=== PATIENT | female | born 1935 | race Caucasian/White ===

== ENCOUNTER → 2016-08-03 | Outpatient (CLI) | payer OTHER ==
[~2016-08-03] MED LIST: ASPEC81 PO; CALC600T9; CLTP PO; CRS/10 PO; LISI2.5T5 PO; LPR25 PO; PANT40TA PO; WARF1TAB6 PO; WARF2.5T8 PO
[2016-08-03 13:15] LABS: INR 3.4 (0.9-1.1); PROTHROMBIN TIME (PATIENT) 37.7 SECONDS (9.0-12.0)
== END | disposition home or self-care (01) ==
LOC: C.LABPBG 09:14
PROVIDERS: ATTEND Internal Medicine
DX: I48.2 Chronic atrial fibrillation (principal); Z79.01 Long term (current) use of anticoagulants

== ENCOUNTER → 2016-10-09 | Outpatient (CLI) | payer OTHER ==
[~2016-10-09] MED LIST changes: +LISI-729 PO
[2016-10-09 12:31] LABS: PROTHROMBIN TIME (PATIENT) 40.1 SECONDS (9.0-12.0)
[2016-10-09 12:41] LABS: INR 3.6 (0.9-1.1)
== END | disposition home or self-care (01) ==
LOC: C.LAB1850 11:18
PROVIDERS: ATTEND Internal Medicine
DX: Z79.01 Long term (current) use of anticoagulants (principal); Z51.81 Encounter for therapeutic drug level monitoring

== ENCOUNTER → 2016-11-02 | Outpatient (CLI) | payer OTHER ==
[2016-11-02 12:22] LABS: BASO % 0.4 %; BASO ABS # 0.03 K/uL (0-0.2); COMPLETE YES; EOS % 4.9 %; IG% 0.3 %; LYMPH % 27.8 %; LYMPH ABS # 1.93 K/uL (1.2-3.4); MEAN CORPUSCULAR HEMOGLOBIN 29.2 pg (25-34); MEAN CORPUSCULAR HGB CONC 32.9 g/dl (32-36); MEAN PLATELET VOLUME 11.5 fL (7.4-10.4); MONO % 10.1 %; NEUT % 56.5 %; PLATELET COUNT 185 K/uL (130-400); RED BLOOD COUNT 4.72 M/uL (4.2-5.4); WHITE BLOOD COUNT 6.93 K/uL (4.8-10.8)
[2016-11-02 13:17] LABS: ALT/SGPT 19 U/L (12-78); AST/SGOT 19 U/L (15-37); BLOOD UREA NITROGEN 13 mg/dl (7-18); BUN/CREATININE RATIO 13.6 (10-20); CALCIUM 9.3 mg/dl (8.5-10.1); CARBON DIOXIDE 25 mmol/L (21-32); CHLORIDE 108 mmol/L (98-107); CHOLESTEROL 112 mg/dl (0-200); CREATININE 0.99 mg/dl (0.60-1.20); GLUCOSE 96 mg/dl (70-99); POTASSIUM 3.9 mmol/L (3.5-5.1); SODIUM 141 mmol/L (136-145)
[2016-11-02 13:28] LABS: ALKALINE PHOSPHATASE 56 U/L (45-117); CHOLESTEROL/HDL RATIO 2.2; HDL CHOLESTEROL 52 mg/dl; LDL CHOLESTEROL CALCULATED 39 mg/dl; TRIGLYCERIDES 105 mg/dl (0-150); VERY LOW DENSITY LIPOPROT CALC 21 mg/dl
== END | disposition home or self-care (01) ==
LOC: C.LABPBG 08:48
PROVIDERS: ATTEND Internal Medicine
DX: I48.2 Chronic atrial fibrillation (principal); I25.10 Atherosclerotic heart disease of native coronary artery without angina pectoris; Z51.81 Encounter for therapeutic drug level monitoring; Z79.01 Long term (current) use of anticoagulants

== ENCOUNTER → 2016-11-18 | Outpatient (CLI) | payer OTHER ==
--- NOTE | 2016-11-18 13:16 | MAMMOGRAPHY REPORT ---
BILATERAL DIGITAL SCREENING MAMMOGRAM WITH CAD: 11/18/2016 CLINICAL HISTORY: Routine screening. Patient has no complaints. TECHNIQUE: Current study was also evaluated with a Computer Aided Detection (CAD) system. Bilatera l CC and MLO views were obtained. COMPARISON: Comparison is made to exams dated: 11/18/2015 mammogram, 11/14/2014 mammogram, 11/13/2013 [facility] mogram, 11/09/2012 mammogram, 06/09/2011 mammogram, and 06/04/2010 mammogram - [facility] enter. BREAST COMPOSITION: The tissue of both breasts is heterogeneously dense, which may obscure small ma sses. FINDINGS: No suspicious masses, calcifications, or areas of architectural distortion are noted in e ither breast. There has been no significant interval change compared to prior exams. A linear scar marker denotes a scar on the left superior breast. Bilateral benign-appearing calcifications are no t significantly changed. IMPRESSION: ACR BI-RADS CATEGORY 2: BENIGN There is no mammographic evidence of malignancy. A 1 year screening mammogram is recommended. The p atient will receive written notification of the results. Approximately 10% of breast cancers are not detected with mammography. A negative mammographic repor t should not delay biopsy if a clinically suggestive mass is present. Lianet Case M.D. ah/:11/18/2016 12:07:51 Tie In Machine Operator: Cornelia SILVA)(Lior), [facility] letter sent: Normal 1/2 BI-RADS Code: ACR BI-RADS Category 2: Benign
== END | disposition home or self-care (01) ==
LOC: C.MAMM 10:40
PROVIDERS: ATTEND Internal Medicine
DX: Z12.31 Encounter for screening mammogram for malignant neoplasm of breast (principal)

== ENCOUNTER → 2017-01-27 | Outpatient (CLI) | payer OTHER ==
[2017-01-27 17:38] LABS: BASO % 0.2 %; BASO ABS # 0.02 K/uL (0-0.2); COMPLETE YES; EOS % 2.6 %; HEMATOCRIT 42.7 % (37-47); IG% 0.3 %; LYMPH % 17.6 %; LYMPH ABS # 1.93 K/uL (1.2-3.4); MEAN CELL VOLUME 88.6 fL (80-100); MEAN CORPUSCULAR HEMOGLOBIN 27.8 pg (25-34); MEAN CORPUSCULAR HGB CONC 31.4 g/dl (32-36); MONO % 10.1 %; NEUT % 69.2 %; PLATELET COUNT 227 K/uL (130-400); RED BLOOD COUNT 4.82 M/uL (4.2-5.4); WHITE BLOOD COUNT 10.98 K/uL (4.8-10.8)
== END | disposition home or self-care (01) ==
LOC: C.LABPBG 11:49
PROVIDERS: ATTEND Internal Medicine
DX: R68.84 Jaw pain (principal)

== ENCOUNTER → 2017-11-19 | Outpatient (CLI) | payer OTHER ==
[~2017-11-19] MED LIST changes: -CALC600T9; -LISI2.5T5 PO; -WARF1TAB6 PO
--- NOTE | 2017-11-22 07:44 | MAMMOGRAPHY REPORT ---
BILATERAL DIGITAL SCREENING MAMMOGRAM TOMOSYNTHESIS WITH CAD: 11/19/2017 CLINICAL HISTORY: Routine screening. Patient has no complaints. TECHNIQUE: Breast tomosynthesis in addition to standard 2D mammography was performed. Current study was also evaluated with a Computer Aided Detection (CAD) system. COMPARISON: Comparison is made to exams dated: 11/18/2016 mammogram, 11/18/2015 mammogram, 11/14/2014 [facility] mogram, 11/13/2013 mammogram, 11/09/2012 mammogram, and 06/09/2011 mammogram - [facility] er. BREAST COMPOSITION: The tissue of both breasts is heterogeneously dense, which may obscure small mas ses. FINDINGS: No suspicious masses, calcifications, or areas of architectural distortion are noted in ei ther breast. There has been no significant interval change compared to prior exams. Scattered bilater al benign-appearing calcifications are not significantly changed. IMPRESSION: ACR BI-RADS CATEGORY 2: BENIGN There is no mammographic evidence of malignancy. A 1 year screening mammogram is recommended. The pa tient will receive written notification of the results. Approximately 10% of breast cancers are not detected with mammography. A negative mammographic report should not delay biopsy if a clinically suggestive mass is present. Lianet Case M.D. /:11/19/2017 13:34:43 Health Sciences Department Chair: Cornelia SILVA)(Lior), [facility] letter sent: Normal 1/2 BI-RADS Code: ACR BI-RADS Category 2: Benign
== END | disposition home or self-care (01) ==
LOC: C.MAMM 11:14
PROVIDERS: ATTEND Internal Medicine
DX: Z12.31 Encounter for screening mammogram for malignant neoplasm of breast (principal)

== ENCOUNTER 2019-11-30 05:44 | Inpatient (IN) ==
--- NOTE | 2019-11-30 06:41 | Emergency Department Note ---
Impression & Plan Stroke, Vertigo, Acute UTI (urinary tract infection), Chest wall contusion, Contusion of flank ED Provider Note NAME: DAVID COURTNEY AGE: 84 SEX: F : 1935 ARRIVES VIA: Ambulance INFORMANT: Patient, ED PROVIDER(S): Sin Gutierrez DO CHIEF COMPLAINT: Vertigo and fall HPI: The patient is an 84-year-old female who has a history of valve replacement who takes oral anticoagulation who presented to the emergency department for an evaluation of dizziness. The patient states that she went to bed at her normal time last evening. She was in her normal state of health. She went to get up this morning to go to the bathroom when she noticed that she became very dizzy and lightheaded. She states that she had room spinning and nausea. This caused her to fall onto her right side striking her right flank. She did not strike h er head or lose consciousness. She has no specific neck pain from the fall. She states that she does have some neck pain which had been ongoing and chronic. The patient called 911 and was brought to the emergency department via ambulance. She did have one episode of emesis prior to arrival. She continues to note nausea. She complains of right flank pain. She denies having any lower extremity pain. She has no hip pain. She has had no recent fevers or chills. She does complain of dysuria and frequency. She denies having any rectal bleeding. She states that she has been compliant with her medications currently. ROS: See above HPI for pertinent positives & negatives. A total of 10 systems reviewed and were otherwise negative. PAST MEDICAL HISTORY: See Below PAST SURGICAL HISTORY: See Below FAMILY HISTORY: See Below SOCIAL HISTORY: See Below HOME MEDICATIONS: See Below ALLERGIES: See Below VITALS: See Below PHYSICAL EXAMINATION: GENERAL: The patient is awake and alert. She is somewhat anxious appearing but overall comfortable. EYES: The conjunctivae are clear. The pupils are constricted but reactive to light bilaterally. EARS, NOSE, MOUTH AND THROAT: The nose is without any evidence of any deformity. Mucous membranes are moist. NECK: The neck is nontender and supple. RESPIRATORY: Normal respiratory effort is noted there is no evidence of wheezing rhonchi or rales CARDIOVASCULAR: Regular rate and rhythm was noted to auscultation. There was a slight murmur detected with a metallic click consistent with the patient's previous history of valve replacement.. GASTROINTESTINAL: The abdomen is soft. There is right-sided tenderness to palpa tion but no guarding or rigidity. BACK: No midline tenderness was elicited. There is significant tenderness over the right lower lateral rib cage into the right flank. There is no signs of ecchymosis at this time. MUSCULOSKELETAL/EXTREMITIES: There is no evidence of gross deformity full range of motion is noted in the hips and shoulders. SKIN: There is no obvious evidence of any rash. There are no petechiae, pallor or cyanosis noted. NEUROLOGIC: Patient is awake alert and oriented x3 strength is symmetric patellar reflexes are 2+ bilaterally MEDICAL DECISION MAKING: The patient is an 84-year-old female who presented to the emergency department f or an evaluation after a fall. The patient had an episode of vertigo which resulted in a fall where she struck her right flank. The patient still had some vertigo symptoms in the emergency department. She was feeling much better at rest and did not wish to have any medication for nausea or vomiting. She also did not wish to have any medication for pain. The patient also complained of urinary symptoms and was found to have a urinary tract infection on urinalysis. I discussed the patient's laboratory and radiographic studies with her. There is no specific traumatic injury of the chest or abdomen. This was concerning given the patient's history of oral anticoagulation use. 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 The patient was treated with IV antibiotics. She was reevaluated multiple times. The patient's blood pressure was stable. Given her findings the [facility] hospitalist group was notified about the patient. They will evaluate the patient in the emergency department for further management and disposition. Triage Nursing notes reviewed. Prior medical records reviewed Vital Signs: reviewed and remarkable for no significant abnormalities Differential diagnosis: Infection, dehydration, metabolic abnormality, hypo/hyperglycemia, electrolyte disturbance, anemia, hypoxia, cardiac sources, intracerebral event, toxicologic, neurologic, as well as other pathologies. ER treatment provided: See below Diagnostics interpreted by me: ECG: EKG was obtained in the emergency department. My interpretation is ventricular paced rhythm at 98 bpm. There were no [place] beats. A left bundle branch block pattern was noted. This was compared to a tracing from February. [place] beats were noted on the previous tracing otherwise no significant change was noted. Cardiac Monitoring: An order was placed for continuous cardiac monitoring. The monitor shows a rate of 95 with paced rhythm. Laboratory studies: As stated above and show below. Imaging studies: See below Consultation(s): 0815: The [facility] hospitalist group was notified about the patient Past Med/Surg History Medical History Antiplatelet or antithrombotic long-term use Atypical chest pain Carpal tunnel syndrome Cyst of eye Dupuytrens contracture History of actinic keratosis History of cough History of fatigue History of osteoporosis History of pacemaker Jaw pain Non-ST elevation myocardial infarction (NSTEMI) Rheumatic heart disease Tremor Surgical History History of breast biopsy BENIGN LEFT BREAST BIOPSY History of History of cataract surgery History of cholecystectomy History of dilation and curettage History of mitral valve replacement (Chronic) #29 [facility] PROSTHETIC MITRAL VALVE. Personal history of heart valve replacement (Inactive) Family History Father , AT AGE 94; METASTATIC BLADDER CANCER Bladder cancer Patient's father is Son , [place] 2007 Colon cancer Mother , AT AGE 85 Coronary heart disease Gastric cancer Social History Preferred Language: Swazi Communication Ability: Effective Folder Tier Required: No Beliefs That Will Affect Care: None marital status: Current Living Situation: Spouse current occupational status: retired Other Information That Helps Us Care for You: No Feels Safe at Home: Yes Safety Concerns: Feels Safe At This Time Smoking Status: Never smoker Do You Dip or Chew Tobacco: No ; Second Hand Exposure: No ; Tobacco Cessation Education Requested by Patient: No Hx Alcohol Use: No Hx Substance Use: No caffeine: Yes Seatbelt Use: always Allergies Allergies Allergy/AdvReac Type Severity Reaction Status Date / Time nitrofurantoin Allergy Mild CAN'T Verified 11/30/19 06:05 REMEMBER Penicillins Allergy Mild CAN'T Verified 11/30/19 06:05 REMEMBER albuterol [From Ventolin HFA] Allergy Unknown Unknown Verified 11/30/19 06:05 amoxicillin Allergy Unknown Unknown Verified 11/30/19 06:06 atorvastatin [From Lipitor] Allergy Unknown Unknown Verified 11/30/19 06:06 hydrocodone Allergy Unknown CAN'T Verified 11/30/19 06:05 REMEMBER Home Meds Home Medications Medication Instructions Recorded Confirmed aspirin 81 mg tablet,delayed 81 mg PO QAM tab 03/31/18 11/30/19 release calcium carb-vit D3-minerals 600 1 tab PO BID 03/31/18 11/30/19 mg calcium-400 unit tablet clobetasol 0.05 % topical ointment 1 applic TOPICAL DAILY #1 gm 02/17/19 11/30/19 clindamycin HCl 150 mg capsule 600 mg PO PRN PRN cap 05/18/19 11/30/19 warfarin 2.5 mg tablet See Rx Instructions PO UD tab 07/14/19 11/30/19 Previous Rx's Medication Instructions Recorded omeprazole 40 mg capsule,delayed 40 mg PO DAILY #90 cap 05/26/19 release rosuvastatin 20 mg tablet 20 mg PO DAILY #90 tab 05/26/19 lisinopril 2.5 mg tablet 2.5 mg PO DAILY #90 tab 09/06/19 metoprolol tartrate 25 mg tablet 12.5 mg PO BID #90 tab 09/06/19 Results & Data (ED) Vital Signs Vital Signs - 24 hr 11/30/19 06:16 11/30/19 07:32 Temperature 36.3 C L Temperature Source Oral Pulse Rate 72 Pulse Rate [Apical] 70 Respiratory Rate 16 18 Respiratory Effort / Characteristics Non-Labored Spontaneous Respiratory Depth Normal Blood Pressure 160/96 H Blood Pressure [Left Arm] 128/76 Blood Pressure Mean 117 Blood Pressure Mean [Left Arm] 93 Pulse Oximetry 98 95 Oxygen Delivery Method Room Air Room Air Sepsis Recent Fever Within 48 Hours No Sepsis Action Taken by Nursing No Action Required Home Medications Current Medication List: was personally reviewed by me Laboratory Data Attestation: I reviewed the patient's lab results. Result diagrams: 11/30/19 06:11 11/30/19 06:11 Lab Results 11/30/19 11/30/19 11/30/19 Range/Units 06:11 06:11 06:11 WBC 8.12 (4.8-10.8) K/uL RBC 4.86 (4.2-5.4) M/uL Hgb 14.2 (12.0-16.0) g/dL POC Hgb (12.0-16.0) g/dl Hct 43.3 (37-47) % POC Hct (37-47) % MCV 89.1 (80-100) fL MCH 29.2 (25-34) pg MCHC 32.8 (32-36) g/dL RDW Std Deviation 47.0 H (36.4-46.3) fL RDW Coeff of Alicia 14.4 (11.5-14.5) % Plt Count 192 (130-400) K/uL MPV 11.0 H (7.4-10.4) fL Immature Gran % (Auto) 0.4 % Neut % (Auto) 61.8 % Lymph % (Auto) 23.5 % Kerr % (Auto) 8.9 % Eos % (Auto) 5.2 % Baso % (Auto) 0.2 % Immature Gran # (Auto) 0.03 H (0.00-0.02) K/uL Neut # (Auto) 5.02 (1.4-6.5) K/uL Lymph # (Auto) 1.91 (1.2-3.4) K/uL Kerr # (Auto) 0.72 H (0.11-0.59) K/uL Eos # (Auto) 0.42 (0-0.5) K/uL Baso # (Auto) 0.02 (0-0.2) K/uL PT 24.9 H (9.0-12.0) Seconds INR 2.5 H (0.9-1.1) APTT (21.0-31.0) Seconds PTT Ratio POC Sodium (135-144) mmol/L Sodium 141 (136-145) mmol/L POC Potassium (3.3-5.0) mmol/L Potassium 3.7 (3.5-5.1) mmol/L POC Chloride (101-112) mmol/L Chloride 106 (98-107) mmol/L Carbon Dioxide 28 (21-32) mmol/L POC Total CO2 (24-31) mmol/L Anion Gap 7.0 (3-11) POC Anion Gap (16-25) mmol/L POC BUN (7-18) mg/dl BUN 14 (7-18) mg/dl Creatinine 1.00 (0.6-1.2) mg/dl POC Creatinine (0.6-1.3) mg/dl Est Cr Clr Drug Dosing 34.7 ml/min Est GFR ( Amer) 59.1 Est GFR (Non-Af Amer) 51.0 BUN/Creatinine Ratio 13.9 (10-20) Glucose 145 H (70-99) mg/dl POC Glucose (other) (70-99) mg/dl Estimat Average Glucose mg/dl Hemoglobin A1c (4.5-5.6) % Calcium 9.6 (8.5-10.1) mg/dl POC Ioniz Calcium Katelynn (1.12-1.32) mmol/l Magnesium 2.0 (1.8-2.4) mg/dl Total Bilirubin 0.6 (0.2-1) mg/dl AST 17 (15-37) U/L ALT 19 (12-78) U/L Alkaline Phosphatase 54 (45-117) U/L Total Creatine Kinase 45 (26-192) U/L Troponin I < 0.015 (0-0.045) ng/ml Total Protein 7.7 (6.4-8.2) gm/dl Albumin 3.7 (3.4-5.0) gm/dl Globulin 4.0 (2.5-4.0) gm/dl Albumin/Globulin Ratio 0.9 (0.9-2) TSH 3.870 (0.300-4.500) uIu/ml Urine Color Urine Appearance (Clear) Urine pH (4.5-7.5) Ur Specific [place] (1.000-1.030) Urine Protein (Negative) Urine Glucose (UA) (Negative) Urine Ketones (Negative) Urine Blood (Negative) Urine Nitrite (Negative) Urine Bilirubin (Negative) Urine Urobilinogen (Negative) Ur Leukocyte Esterase (Negative) Urine WBC (Auto) (0-5) /hpf Urine RBC (Auto) (0-4) /hpf U Hyaline Cast (Auto) (0-5) /lpf U Epithel Cells (Auto) (0-5) /lpf Urine Bacteria (Auto) (Negative) 11/30/19 11/30/19 11/30/19 Range/Units 06:11 06:11 06:11 WBC (4.8-10.8) K/uL RBC (4.2-5.4) M/uL Hgb (12.0-16.0) g/dL POC Hgb (12.0-16.0) g/dl Hct (37-47) % POC Hct (37-47) % MCV (80-100) fL MCH (25-34) pg MCHC (32-36) g/dL RDW Std Deviation (36.4-46.3) fL RDW Coeff of Alicia (11.5-14.5) % Plt Count (130-400) K/uL MPV (7.4-10.4) fL Immature Gran % (Auto) % Neut % (Auto) % Lymph % (Auto) % Kerr % (Auto) % Eos % (Auto) % Baso % (Auto) % Immature Gran # (Auto) (0.00-0.02) K/uL Neut # (Auto) (1.4-6.5) K/uL Lymph # (Auto) (1.2-3.4) K/uL Kerr # (Auto) (0.11-0.59) K/uL Eos # (Auto) (0-0.5) K/uL Baso # (Auto) (0-0.2) K/uL PT (9.0-12.0) Seconds INR (0.9-1.1) APTT 32.8 H (21.0-31.0) Seconds PTT Ratio 1.2 POC Sodium (135-144) mmol/L Sodium (136-145) mmol/L POC Potassium (3.3-5.0) mmol/L Potassium (3.5-5.1) mmol/L POC Chloride (101-112) mmol/L Chloride (98-107) mmol/L Carbon Dioxide (21-32) mmol/L POC Total CO2 (24-31) mmol/L Anion Gap (3-11) POC Anion Gap (16-25) mmol/L POC BUN (7-18) mg/dl BUN (7-18) mg/dl Creatinine (0.6-1.2) mg/dl POC Creatinine (0.6-1.3) mg/dl Est Cr Clr Drug Dosing ml/min Est GFR ( Amer) Est GFR (Non-Af Amer) BUN/Creatinine Ratio (10-20) Glucose (70-99) mg/dl POC Glucose (other) (70-99) mg/dl Estimat Average Glucose 131 mg/dl Hemoglobin A1c 6.2 H (4.5-5.6) % Calcium (8.5-10.1) mg/dl POC Ioniz Calcium Katelynn (1.12-1.32) mmol/l Magnesium (1.8-2.4) mg/dl Total Bilirubin (0.2-1) mg/dl AST (15-37) U/L ALT (12-78) U/L Alkaline Phosphatase (45-117) U/L Total Creatine Kinase (26-192) U/L Troponin I (0-0.045) ng/ml Total Protein (6.4-8.2) gm/dl Albumin (3.4-5.0) gm/dl Globulin (2.5-4.0) gm/dl Albumin/Globulin Ratio (0.9-2) TSH (0.300-4.500) uIu/ml Urine Color Yellow Urine Appearance Cloudy A (Clear) Urine pH 5.0 (4.5-7.5) Ur Specific [place] 1.016 (1.000-1.030) Urine Protein Negative (Negative) Urine Glucose (UA) Negative (Negative) Urine Ketones Negative (Negative) Urine Blood 1+ H (Negative) Urine Nitrite Positive A (Negative) Urine Bilirubin Negative (Negative) Urine Urobilinogen Negative (Negative) Ur Leukocyte Esterase 3+ H (Negative) Urine WBC (Auto) >30 H (0-5) /hpf Urine RBC (Auto) 5-10 H (0-4) /hpf U Hyaline Cast (Auto) 0 (0-5) /lpf U Epithel Cells (Auto) 5-10 H (0-5) /lpf Urine Bacteria (Auto) 4+ H (Negative) 11/30/19 Range/Units 07:01 WBC (4.8-10.8) K/uL RBC (4.2-5.4) M/uL Hgb (12.0-16.0) g/dL POC Hgb 15.3 (12.0-16.0) g/dl Hct (37-47) % POC Hct 45 (37-47) % MCV (80-100) fL MCH (25-34) pg MCHC (32-36) g/dL RDW Std Deviation (36.4-46.3) fL RDW Coeff of Alicia (11.5-14.5) % Plt Count (130-400) K/uL MPV (7.4-10.4) fL Immature Gran % (Auto) % Neut % (Auto) % Lymph % (Auto) % Kerr % (Auto) % Eos % (Auto) % Baso % (Auto) % Immature Gran # (Auto) (0.00-0.02) K/uL Neut # (Auto) (1.4-6.5) K/uL Lymph # (Auto) (1.2-3.4) K/uL Kerr # (Auto) (0.11-0.59) K/uL Eos # (Auto) (0-0.5) K/uL Baso # (Auto) (0-0.2) K/uL PT (9.0-12.0) Seconds INR (0.9-1.1) APTT (21.0-31.0) Seconds PTT Ratio POC Sodium 141 (135-144) mmol/L Sodium (136-145) mmol/L POC Potassium 4.6 (3.3-5.0) mmol/L Potassium (3.5-5.1) mmol/L POC Chloride 104 (101-112) mmol/L Chloride (98-107) mmol/L Carbon Dioxide (21-32) mmol/L POC Total CO2 30 (24-31) mmol/L Anion Gap (3-11) POC Anion Gap 12.0 L (16-25) mmol/L POC BUN 18 (7-18) mg/dl BUN (7-18) mg/dl Creatinine (0.6-1.2) mg/dl POC Creatinine 0.9 (0.6-1.3) mg/dl Est Cr Clr Drug Dosing ml/min Est GFR ( Amer) Est GFR (Non-Af Amer) BUN/Creatinine Ratio (10-20) Glucose (70-99) mg/dl POC Glucose (other) 119 H (70-99) mg/dl Estimat Average Glucose mg/dl Hemoglobin A1c (4.5-5.6) % Calcium (8.5-10.1) mg/dl POC Ioniz Calcium Katelynn 1.25 (1.12-1.32) mmol/l Magnesium (1.8-2.4) mg/dl Total Bilirubin (0.2-1) mg/dl AST (15-37) U/L ALT (12-78) U/L Alkaline Phosphatase (45-117) U/L Total Creatine Kinase (26-192) U/L Troponin I (0-0.045) ng/ml Total Protein (6.4-8.2) gm/dl Albumin (3.4-5.0) gm/dl Globulin (2.5-4.0) gm/dl Albumin/Globulin Ratio (0.9-2) TSH (0.300-4.500) uIu/ml Urine Color Urine Appearance (Clear) Urine pH (4.5-7.5) Ur Specific [place] (1.000-1.030) Urine Protein (Negative) Urine Glucose (UA) (Negative) Urine Ketones (Negative) Urine Blood (Negative) Urine Nitrite (Negative) Urine Bilirubin (Negative) Urine Urobilinogen (Negative) Ur Leukocyte Esterase (Negative) Urine WBC (Auto) (0-5) /hpf Urine RBC (Auto) (0-4) /hpf U Hyaline Cast (Auto) (0-5) /lpf U Epithel Cells (Auto) (0-5) /lpf Urine Bacteria (Auto) (Negative) Administered Medications Acetaminophen (Tylenol) 650 mg PO Q4H PRN PRN Reason: Moderate Pain Stop: 12/30/19 10:55 Last Admin: 11/30/19 18:06 Dose: 650 mg Documented by: [id number] Admin: 11/30/19 11:17 Dose: 650 mg Documented by: [id number] Aspirin (Ecotrin Ectab) 81 mg PO QAM [facility] Stop: 12/30/19 10:02 Last Admin: 11/30/19 11:18 Dose: 81 mg Documented by: [id number] Clobetasol Propionate (Clobetasol Propionate Oint) 1 appln EXT DAILY [facility] Stop: 12/30/19 10:14 Last Admin: 11/30/19 11:18 Dose: 1 appln Documented by: [id number] Lisinopril (Zestril) 2.5 mg PO DAILY [facility] Stop: 12/30/19 10:02 Last Admin: 11/30/19 11:18 Dose: 2.5 mg Documented by: [id number] Metoprolol Tartrate (Lopressor) 12.5 mg PO BID [facility] Stop: 12/30/19 10:02 Last Admin: 11/30/19 11:18 Dose: 12.5 mg Documented by: [id number] Multivitamins/Minerals (Caltrate Plus) 1 tab PO BID DAVID Stop: 12/30/19 10:02 Last Admin: 11/30/19 11:18 Dose: 1 tab Documented by: [id number] Pantoprazole Sodium (Protonix) 40 mg PO DAILY DAVID Stop: 12/30/19 10:14 Last Admin: 11/30/19 11:18 Dose: 40 mg Documented by: [id number] Rosuvastatin Calcium (Crestor) 20 mg PO DAILY DAVID Stop: 12/30/19 10:02 Last Admin: 11/30/19 11:18 Dose: 20 mg Documented by: [id number] Discontinued Medications Ceftriaxone Sodium (Rocephin) 1,000 mg in 50 mls @ 100 mls/hr IV NOW STA Stop: 11/30/19 08:13 Last Infusion: 11/30/19 08:34 Dose: 0 mls/hr Documented by: [id number] Admin: 11/30/19 08:02 Dose: 100 mls/hr Documented by: [id number] Ioversol (Optiray 320 100ml) 94 ml IV ONCE PRN PRN Reason: Interaction Checking Stop: 12/04/19 07:21 Last Admin: 11/30/19 07:23 Dose: 94 ml Documented by: [id number] Imaging Data Radiologist's Impression: CT OF THE HEAD WITHOUT CONTRAST CLINICAL HISTORY: Dizzy. Fall. COMPARISON STUDY: Head CT April 01, 2019. TECHNIQUE: Helical axial images of the head were obtained without IV contrast. Automated exposure control was utilized for the study. A dose lowering technique was utilized adhering to the principles of ALARA. FINDINGS: No acute intracranial hemorrhage, midline shift or mass effect is pr esent. The ventricular system is stable. Basilar cisterns are patent. There are no extra-axial collections. White matter hypodensity suggests small vessel disease. A hypodensity within left basal ganglia is unchanged since head CT of April 01, 2019. A 9 mm hypodensity within the right cerebellar hemisphere is new since prior exam. There are no findings to suggest acute dural sinus thrombosis or acute territorial infarct. No calvarial fracture is identified. IMPRESSION: 1. No acute intracranial hemorrhage or mass effect. 2. 9 mm lacunar infarct within the right cerebellar hemisphere. 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 3. No calvarial fracture. ACT 112: Negative or not required by law. Electronically signed by: Williams Pretty M.D. 11/30/2019 7:42 AM Dictated: 11/30/1938 Transcribed: 11/30/19735 CT OF THE CHEST WITH IV CONTRAST CLINICAL HISTORY: Fall. COMPARISON STUDY: Chest CT May 10, 2011. Chest radiograph April 01, 2019. TECHNIQUE: Following IV administration of 94 mL of Optiray-320, helical axial images of the chest were obtained. Sagittal and coronal reconstructions were viewed as well as maximal intensity projections on an independent 3-D workstation. Automated exposure control was utilized for the study. A dose lowering technique was utilized adhering to the principles of ALARA. CT DOSE: 1329.42 mGy.cm FINDINGS: Several thyroid nodules are incidentally noted. Marked cardiomegaly is again noted with peripheral calcification of the left atrium. This was present on prior exam. There is marked atrial dilatation. There is no pericardial effusion. There is no evidence for traumatic injury to the thoracic aorta. No enlarged thoracic lymph nodes are present. A left subclavian pacer is in place. No pneumothorax or pleural effusion is noted. There is no pulmonary contusion. Mild groundglass opacities and interlobular septal thickening within the lungs is noted. No acute rib or thoracic spine fracture is noted. The abdomen and pelvis will be reported separately. Prosthetic mitral valve is noted. IMPRESSION: 1. No acute traumatic findings within the chest. 2. Evidence for mild pulmonary edema. 3. Marked cardiomegaly. ACT 112: Negative or not required by law. Electronically signed by: Williams Pretty M.D. 11/30/2019 7:50 AM Dictated: 11/30/1944 Transcribed: 11/30/[address] DOSE: HISTORY: fall TECHNIQUE: Multiaxial CT images of the cervical spine were performed and reformatted in the sagittal and coronal plane without the use of contrast. A dose lowering technique was utilized adhering to the principles of ALARA. COMPARISON: None. FINDINGS: No fractures. No subluxation. Prevertebral soft tissues and the C1-C2 interval are intact. No pneumothorax. Moderate degenerative disc disease throughout the majority of the cervical spine. IMPRESSION: No fractures within the cervical spine. ACT 112: Negative or not required by law. Electronically signed by: Michael Ackerman M.D. 11/30/2019 7:40 AM Dictated: 11/30/1939 Transcribed: 11/30/[address] WITH IV CONTRAST CT DOSE: HISTORY: fall TECHNIQUE: Multiaxial CT images of the abdomen and pelvis were performed following the use of intravenous contrast. A dose lowering technique was utilized adhering to the principles of ALARA. COMPARISON STUDY: None. FINDINGS: Interstitial thickening at the lung bases with groundglass densities. This is better appreciated on the same day chest CT. The heart is moderately enlarged. Pacemaker wire is noted. There is a mitral valve prosthesis and calcifications within the left atrium. Poststernotomy changes are noted. No pneumoperitoneum. No pneumatosis. No fractures within the visualized osseous structures. The liver and spleen enhance normally. The pancreas and adrenal glands are unremarkable. Bilateral cortical renal scarring. No hydronephrosis. No retroperitoneal lymphadenopathy or hematoma. Normal caliber thoracic aorta. Mild intra and extra hepatic bile duct dilatation which is likely due to the postcholecystectomy state. The uterus and bilateral adnexa are within normal limits. Mild bladder wall thickening. Mild thickening of the sigmoid colon is likely due to muscular hypertrophy from the extensive diverticulosis. No pericolonic inflammatory change to suggest acute diverticulitis at this time. No evidence for bowel obstruction. The appendix is not identified and reportedly surgically absent. IMPRESSION: 1. No acute traumatic abnormality within the abdomen or pelvis. 2. Mild bladder wall thickening. This could be chronic. Recommend correlation with urinalysis. 3. Colonic diverticulosis. 4. Prior cholecystectomy. 5. Please refer to the same day chest CT for further evaluation of the lung bases. ACT 112: Negative or not required by law. Electronically signed by: Michael Ackerman M.D. 11/30/2019 7:48 AM Dictated: 11/30/1942 Transcribed: 11/30/19739 Blood Pressure Blood Pressure Findings: Normal blood pressure Head Trauma GCS Score: 15 Discharge Plan Visit Data *Final* Discharge Date/Time: 11/30/19 09:45 Chief Complaint: Fall Stated Complaint: FALL/DIZZY/VOMITING/PAIN TO RIGHT SIDE ED Provider: Sin Gutierrez Discharge Problem: Stroke, Vertigo, Acute UTI (urinary tract infection), Chest wall contusion, Co ntusion of flank Patient Disposition: Admitted As Inpatient Condition: Good Discharge Instructions Interventions: ED Discharge Assessment Last Done: 11/30/19 09:45 Discharge Problem: Stroke Qualifiers: CVA mechanism: unspecified Qualified Code(s): I63.9 - Cerebral infarction, unspecified Chest wall contusion Qualifiers: Encounter type: initial encounter Laterality: right Qualified Code(s): S20.211A - Contusion of right front wall of thorax, initial encounter Contusion of flank Qualifiers: Encounter type: initial encounter Qualified Code(s): S30.1XXA - Contusion of abdominal wall, initial encounter
[2019-11-30 06:46] LABS: Basophils # (auto) 0.02 K/uL (0-0.2); Basophils % (auto) 0.2 %; Eosinophils # (auto) 0.42 K/uL (0-0.5); Eosinophils % (auto) 5.2 %; Hematocrit (blood only) 43.3 % (37-47); Hemoglobin 14.2 g/dL (12.0-16.0); Immature Granulocytes # (auto) 0.03 K/uL (0.00-0.02); Immature Granulocytes % (auto) 0.4 %; Lymphocytes # (auto) 1.91 K/uL (1.2-3.4); Lymphocytes % (auto) 23.5 %; Mean Corpuscular Hemoglobin 29.2 pg (25-34); Mean Corpuscular Hgb Conc 32.8 g/dL (32-36); Mean Corpuscular Volume 89.1 fL (80-100); Monocytes # (auto) 0.72 K/uL (0.11-0.59); Monocytes % (auto) 8.9 %; Neutrophils # (auto) 5.02 K/uL (1.4-6.5); Neutrophils % (auto) 61.8 %; Platelet Count 192 K/uL (130-400); RDW Coefficient of Variation 14.4 % (11.5-14.5); Red Blood Count 4.86 M/uL (4.2-5.4); White Blood Count 8.12 K/uL (4.8-10.8)
[2019-11-30 06:55] LABS: INR 2.5 (0.9-1.1); Prothrombin Time 24.9 Seconds (9.0-12.0)
[2019-11-30 07:02] LABS: Alanine Aminotransferase 19 U/L (12-78); Albumin Level 3.7 gm/dl (3.4-5.0); Aspartate Aminotransferase 17 U/L (15-37); BUN Creatinine Ratio 13.9 (10-20); Blood Urea Nitrogen 14 mg/dl (7-18); Calcium 9.6 mg/dl (8.5-10.1); Carbon Dioxide 28 mmol/L (21-32); Chloride 106 mmol/L (98-107); Creatinine Clr Calc Pharmacy 34.7 ml/min; Est GFR (African American) 59.1; Glucose 145 mg/dl (70-99); Potassium 3.7 mmol/L (3.5-5.1); Sodium 141 mmol/L (136-145)
[2019-11-30 07:13] LABS: Albumin Globulin Ratio 0.9 (0.9-2); Alkaline Phosphatase 54 U/L (45-117); Appearance Urine Cloudy (Clear); Bacteria Urine Automated 4+ (Negative); Bilirubin Urine Negative (Negative); Bilirubin,Total 0.6 mg/dl (0.2-1); Blood Urine 1+ (Negative); Cast Urine Automated 0 /lpf (0-5); Color Urine Yellow; Creatine Kinase 45 U/L (26-192); Glucose Urine UA Negative (Negative); Ketones Urine Negative (Negative); Leukocyte Esterase Urine 3+ (Negative); Nitrite Urine Positive (Negative); Protein Urine Negative (Negative); Specific Gravity Urine 1.016 (1.000-1.030); Total Protein 7.7 gm/dl (6.4-8.2); Troponin I < 0.015 ng/ml (0-0.045); Urobilinogen Urine Negative (Negative); WBC Urine Automated >30 /hpf (0-5)
[2019-11-30 07:20] LABS: iSTAT Creatinine 0.9 mg/dl (0.6-1.3); iSTAT Hemoglobin 15.3 g/dl (12.0-16.0); iSTAT Ionized Calcium 1.25 mmol/l (1.12-1.32); iSTAT Potassium 4.6 mmol/L (3.3-5.0)
[2019-11-30] MEDS ORDERED: IOVERSOL 100ml IV PRN (07:22)
[2019-11-30 07:34] LABS: Partial Thromboplastin Ratio 1.2; Partial Thromboplastin Time 32.8 Seconds (21.0-31.0)
--- NOTE | 2019-11-30 07:41 | CT Scan Report ---
CERVICAL SPINE CT CT DOSE: HISTORY: fall TECHNIQUE: Multiaxial CT images of the cervical spine were performed and reformatted in the sagittal and coronal plane without the use of contrast. A dose lowering technique was utilized adhering to th e principles of ALARA. COMPARISON: None. FINDINGS: No fractures. No subluxation. Prevertebral soft tissues and the C1-C2 interval are intact. No pneumothorax. Moderate degenerative disc disease throughout the majority of the cervical spine. IMPRESSION: No fractures within the cervical spine. ACT 112: Negative or not required by law. Electronically signed by: Michael Ackerman M.D. 11/30/2019 7:40 AM
--- NOTE | 2019-11-30 07:43 | CT Scan Report ---
CT OF THE HEAD WITHOUT CONTRAST CLINICAL HISTORY: Dizzy. Fall. COMPARISON STUDY: Head CT April 01, 2019. TECHNIQUE: Helical axial images of the head were obtained without IV contrast. Automated exposure con trol was utilized for the study. A dose lowering technique was utilized adhering to the principles o f ALARA. FINDINGS: No acute intracranial hemorrhage, midline shift or mass effect is present. The ventricular system is stable. Basilar cisterns are patent. There are no extra-axial collections. White matter hyp odensity suggests small vessel disease. A hypodensity within left basal ganglia is unchanged since he ad CT of April 01, 2019. A 9 mm hypodensity within the right cerebellar hemisphere is new since p rior exam. There are no findings to suggest acute dural sinus thrombosis or acute territorial infarct . No calvarial fracture is identified. IMPRESSION: 1. No acute intracranial hemorrhage or mass effect. 2. 9 mm lacunar infarct within the right cerebellar hemisphere. Although new since head [facility] 2018, the appearance favors a subacute to chronic lacunar infarct. 3. No calvarial fracture. ACT 112: Negative or not required by law. Electronically signed by: Williams Pretty M.D. 11/30/2019 7:42 AM
[2019-11-30] MEDS ORDERED: cefTRIAXone SODIUM 1,000 MG/50 ML BAG IV STA (07:44)
--- NOTE | 2019-11-30 07:49 | CT Scan Report ---
ABDOMEN AND PELVIS CT WITH IV CONTRAST CT DOSE: HISTORY: fall TECHNIQUE: Multiaxial CT images of the abdomen and pelvis were performed following the use of intrave nous contrast. A dose lowering technique was utilized adhering to the principles of ALARA. COMPARISON STUDY: None. FINDINGS: Interstitial thickening at the lung bases with groundglass densities. This is better apprec iated on the same day chest CT. The heart is moderately enlarged. Pacemaker wire is noted. There is a mitral valve prosthesis and calcifications within the left atrium. Poststernotomy changes are noted. No pneumoperitoneum. No pneumatosis. No fractures within the visualized osseous structures. The live r and spleen enhance normally. The pancreas and adrenal glands are unremarkable. Bilateral cortical r enal scarring. No hydronephrosis. No retroperitoneal lymphadenopathy or hematoma. Normal caliber thor acic aorta. Mild intra and extra hepatic bile duct dilatation which is likely due to the postcholecys tectomy state. The uterus and bilateral adnexa are within normal limits. Mild bladder wall thickening . Mild thickening of the sigmoid colon is likely due to muscular hypertrophy from the extensive diver ticulosis. No pericolonic inflammatory change to suggest acute diverticulitis at this time. No eviden ce for bowel obstruction. The appendix is not identified and reportedly surgically absent. IMPRESSION: 1. No acute traumatic abnormality within the abdomen or pelvis. 2. Mild bladder wall thickening. This could be chronic. Recommend correlation with urinalysis. 3. Colonic diverticulosis. 4. Prior cholecystectomy. 5. Please refer to the same day chest CT for further evaluation of the lung bases. ACT 112: Negative or not required by law. Electronically signed by: Michael Ackerman M.D. 11/30/2019 7:48 AM
--- NOTE | 2019-11-30 07:52 | CT Scan Report ---
CT OF THE CHEST WITH IV CONTRAST CLINICAL HISTORY: Fall. COMPARISON STUDY: Chest CT May 10, 2011. Chest radiograph April 01, 2019. TECHNIQUE: Following IV administration of 94 mL of Optiray-320, helical axial images of the chest we re obtained. Sagittal and coronal reconstructions were viewed as well as maximal intensity projectio ns on an independent 3-D workstation. Automated exposure control was utilized for the study. A dose lowering technique was utilized adhering to the principles of ALARA. CT DOSE: 1329.42 mGy.cm FINDINGS: Several thyroid nodules are incidentally noted. Marked cardiomegaly is again noted with pe ripheral calcification of the left atrium. This was present on prior exam. There is marked atrial dil atation. There is no pericardial effusion. There is no evidence for traumatic injury to the thoracic aorta. No enlarged thoracic lymph nodes are present. A left subclavian pacer is in place. No pneumoth orax or pleural effusion is noted. There is no pulmonary contusion. Mild groundglass opacities and in terlobular septal thickening within the lungs is noted. No acute rib or thoracic spine fracture is no anamaria. The abdomen and pelvis will be reported separately. Prosthetic mitral valve is noted. IMPRESSION: 1. No acute traumatic findings within the chest. 2. Evidence for mild pulmonary edema. 3. Marked cardiomegaly. ACT 112: Negative or not required by law. Electronically signed by: Williams Pretty M.D. 11/30/2019 7:50 AM
--- NOTE | 2019-11-30 08:44 | History & Physical Report ---
Date of Service November 30, 2019 Assessment & Plan (1) Stroke: -Admit to [facility] with telemetry -Stroke protocol set completed -Checking 2D echo with cardiac hx and valve replacements -CT of the head reviewed showing 9 mm lacunar infarct in the right cerebellum, subacute to chronic, likely acute in the setting of acute vertigo, dry heaves, fall. -Patient is on Coumadin daily, last dose last evening, will HOLD, can consider heparin infusion once INR <2 -PT/OT consults, patient is fully ambulatory without any strength deficits, no speech or sensory deficits. -Neurology consulted -Continue baby aspirin daily, rosuvastatin daily -Checking lipids and A1c (2) Vertigo: -Patient reports is improved at this time, likely secondary to stroke as above, ambulatory without assistance at bedside -Continue fall precautions (3) Acute UTI (urinary tract infection): -Started on ceftriaxone IV, continue for now -Follow urine culture for sensitivity (4) Contusion of flank: (5) Chest wall contusion: -CT did not reveal hemorrhage, concern for bleeding into the space, low threshold for INR reversal or repeat imaging of the chest if symptoms change. (6) Permanent atrial fibrillation: -On Coumadin, holding for now in the setting of acute fall -INR 2.5 on admission, trend with a.m. labs (7) Presence of cardiac pacemaker: -Placed in 2007, battery replaced in 2016 (8) Mitral valve stenosis: -Noted, s/p mitral valve replacement in 1988 (9) History of mitral valve replacement: (10) Non-occlusive coronary artery disease: -History of NSTEMI (11) Sick sinus syndrome: -History of such (12) Hypertension: -Continue lisinopril 2.5 daily, metoprolol tartrate 12.5 mg BID (13) Hyperlipidemia: -Continue rosuvastatin 20 mg daily (14) Gastroesophageal reflux disease: -Noted continue omeprazole to 40 mg daily (15) DVT prophylaxis: - teds, holding Coumadin CODE: Full code Dispo: From home, likely to remain in the hospital x 1-2 days History of Present Illness Primary Care Provider: Abelardo Mortensen MD This is an 84 yo F with PMHx of nonobstructive CAD with NSTEMI in 2011, atrial fibrillation on Coumadin, 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 Pt presents after developing vertigo, falling at home in the bathroom around 4 AM, and found to have a 9 mm lacunar infarct within the right cerebellum infarct on imaging, appearance favors a subacute to chronic lacunar infarct, and is different since last CT of the head in March 2019. She reports that during this episode of vertigo, she had been in the bathroom due to increased frequency and burning which has been going on x1 week. She had been increasing her water intake and drinking cranberry juice thinking that she did have a urinary tract infection but thought she was "beating it". She also developed dry heaves this morning as well as the room spinning around her, but did not vomit. Patient fell and hit her right side of her ribs into the side of the tub off of the toilet and called for help because she was unable to get up by herself. She lives at home with her who called EMS. She has had urinary tract infections in the past however no symptoms like vertigo to accompany the symptoms in the past. She has been taking her Coumadin as prescribed as well as all her other medications. Currently she has complaints of right-sided rib pain rated as a 6 out of 10, but tolerable. She has not taken any pain medication for this since being here. Allergies Allergy/AdvReac Type Severity Reaction Status Date / Time nitrofurantoin Allergy Mild CAN'T Verified 11/30/19 06:05 REMEMBER Penicillins Allergy Mild CAN'T Verified 11/30/19 06:05 REMEMBER albuterol [From Ventolin HFA] Allergy Unknown Unknown Verified 11/30/19 06:05 amoxicillin Allergy Unknown Unknown Verified 11/30/19 06:06 atorvastatin [From Lipitor] Allergy Unknown Unknown Verified 11/30/19 06:06 hydrocodone Allergy Unknown CAN'T Verified 11/30/19 06:05 REMEMBER Home Medications Home Medications Medication Instructions Recorded Confirmed Type aspirin 81 mg tablet,delayed 81 mg PO QAM tab 03/31/18 11/30/19 History release calcium carb-vit D3-minerals 600 1 tab PO BID 03/31/18 11/30/19 History mg calcium-400 unit tablet clobetasol 0.05 % topical ointment 1 applic TOPICAL DAILY #1 gm 02/17/19 11/30/19 History clindamycin HCl 150 mg capsule 600 mg PO PRN PRN cap 05/18/19 11/30/19 History omeprazole 40 mg capsule,delayed 40 mg PO DAILY #90 cap 05/26/19 11/30/19 Rx release rosuvastatin 20 mg tablet 20 mg PO DAILY #90 tab 05/26/19 11/30/19 Rx warfarin 2.5 mg tablet See Rx Instructions PO UD tab 07/14/19 11/30/19 History lisinopril 2.5 mg tablet 2.5 mg PO DAILY #90 tab 09/06/19 11/30/19 Rx metoprolol tartrate 25 mg tablet 12.5 mg PO BID #90 tab 09/06/19 11/30/19 Rx Past Med/Surg History Medical History Antiplatelet or antithrombotic long-term use Atypical chest pain Carpal tunnel syndrome Cyst of eye Dupuytrens contracture History of actinic keratosis History of cough History of fatigue History of osteoporosis History of pacemaker Jaw pain Non-ST elevation myocardial infarction (NSTEMI) Rheumatic heart disease Tremor Surgical History History of breast biopsy BENIGN LEFT BREAST BIOPSY History of History of cataract surgery History of cholecystectomy History of dilation and curettage History of mitral valve replacement (Chronic) #29 [employer] PROSTHETIC MITRAL VALVE. Personal history of heart valve replacement (Inactive) Family History Father , AT AGE 94; METASTATIC BLADDER CANCER Bladder cancer Patient's father is Son , IN 2007 Colon cancer Mother , AT AGE 85 Coronary heart disease Gastric cancer Social History Preferred Language: Cymro Communication Ability: Effective Telecasting Technician Required: No Beliefs That Will Affect Care: None marital status: Current Living Situation: Spouse current occupational status: retired Other Information That Helps Us Care for You: No Feels Safe at Home: Yes Safety Concerns: Feels Safe At This Time Smoking Status: Never smoker Do You Dip or Chew Tobacco: No ; Second Hand Exposure: No ; Tobacco Cessation Education Requested by Patient: No Hx Alcohol Use: No Hx Substance Use: No caffeine: Yes Seatbelt Use: always Review of Systems Review of Systems: Constitutional: No fever, sweats or chills Eyes: No diplopia, no worsening or blurred vision ENT: normal hearing, no trouble swallowing Respiratory: No cough, sputum, dyspnea at rest or on exertion Cardiovascular: No chest pain, tightness or palpitations Abdomen: As per HPI, no pain, vomiting, diarrhea or constipation : + Dysuria, + increased frequency x1 week, no hematuria Musculoskeletal: + Right-sided rib pain, otherwise no joint pain, calf pain, or swelling Neurologic: No weakness, numbness/tingling, or balance problems, walking without assistive device without difficulty Psychiatric: No anxiety or depression Skin: No rash or itch Physical Exam Physical Exam: General: awake, alert, no apparent distress, walks about the room to get a bedside potty without difficulty. Head: Normocephalic, atraumatic ENT: PERRL, EOMI, no pharyngeal exudate, mucous membranes moist, + poor dentition, + missing teeth Chest: Clear to auscultation, on room air, no adventitious breath sounds, + developing ecchymosis over the right posterior side of rib cage Cardiac: Regular rate and rhythm, + opening click from MV replacement, no mur mur, no JVD, normal peripheral pulses, good capillary refill Abdominal: NABS x 4 quadrants, soft, nontender to palpation, no rebound, guarding or tenderness Extremities: Normal inspection, no peripheral edema or erythema, calfs nontender to palpation Psych: Normal mood and affect Neuro: AAO x 3, strength intact bilaterally and rated 5/5, no motor deficits, speech is clear, no peripheral sensory deficits Skin: no rash or erythema Results & Data Results & Data ([facility]) Vital Signs (Past 12 Hours) Vital Signs Temp Pulse Pulse Resp BP BP Pulse Ox 11/30/19 07:32 70 18 128/76 95 11/30/19 06:16 36.3 C L 72 16 160/96 H 98 Diagnostic Findings ABDOMEN AND PELVIS CT WITH IV CONTRAST CT DOSE: HISTORY: fall TECHNIQUE: Multiaxial CT images of the abdomen and pelvis were performed following the use of intravenous contrast. A dose lowering technique was utilized adhering to the principles of ALARA. COMPARISON STUDY: None. FINDINGS: Interstitial thickening at the lung bases with groundglass densities. This is better appreciated on the same day chest CT. The heart is moderately enlarged. Pacemaker wire is noted. There is a mitral valve prosthesis and calcifications within the left atrium. Poststernotomy changes are noted. No pneumoperitoneum. No pneumatosis. No fractures within the visualized osseous structures. The liver and spleen enhance normally. The pancreas and adrenal glands are unremarkable. Bilateral cortical renal scarring. No hydronephrosis. No retroperitoneal lymphadenopathy or hematoma. Normal caliber thoracic aorta. Mild intra and extra hepatic bile duct dilatation which is likely due to the postcholecystectomy state. The uterus and bilateral adnexa are within normal limits. Mild bladder wall thickening. Mild thickening of the sigmoid colon is likely due to muscular hypertrophy from the extensive diverticulosis. No pericolonic inflammatory change to suggest acute diverticulitis at this time. No evidence for bowel obstruction. The appendix is not identified and reportedly surgically absent. IMPRESSION: 1. No acute traumatic abnormality within the abdomen or pelvis. 2. Mild bladder wall thickening. This could be chronic. Recommend correlation with urinalysis. 3. Colonic diverticulosis. 4. Prior cholecystectomy. 5. Please refer to the same day chest CT for further evaluation of the lung bases. CERVICAL SPINE CT CT DOSE: HISTORY: fall TECHNIQUE: Multiaxial CT images of the cervical spine were performed and reformatted in the sagittal and coronal plane without the use of contrast. A dose lowering technique was utilized adhering to the principles of ALARA. COMPARISON: None. FINDINGS: No fractures. No subluxation. Prevertebral soft tissues and the C1-C2 interval are intact. No pneumothorax. Moderate degenerative disc disease throughout the majority of the cervical spine. IMPRESSION: No fractures within the cervical spine. CT OF THE CHEST WITH IV CONTRAST CLINICAL HISTORY: Fall. COMPARISON STUDY: Chest CT May 10, 2011. Chest radiograph April 01, 2019. TECHNIQUE: Following IV administration of 94 mL of Optiray-320, helical axial images of the chest were obtained. Sagittal and coronal reconstructions were viewed as well as maximal intensity projections on an independent 3-D workstation. Automated exposure control was utilized for the study. A dose lowering technique was utilized adhering to the principles of ALARA. CT DOSE: 1329.42 mGy.cm FINDINGS: Several thyroid nodules are incidentally noted. Marked cardiomegaly is again noted with peripheral calcification of the left atrium. This was present on prior exam. There is marked atrial dilatation. There is no pericardial effusion. There is no evidence for traumatic injury to the thoracic aorta. No enlarged thoracic lymph nodes are present. A left subclavian pacer is in place. No pneumothorax or pleural effusion is noted. There is no pulmonary contusion. Mild groundglass opacities and interlobular septal thickening within the lungs is noted. No acute rib or thoracic spine fracture is noted. The abdomen and pelvis will be reported separately. Prosthetic mitral valve is noted. IMPRESSION: 1. No acute traumatic findings within the chest. 2. Evidence for mild pulmonary edema. 3. Marked cardiomegaly. CT OF THE HEAD WITHOUT CONTRAST CLINICAL HISTORY: Dizzy. Fall. COMPARISON STUDY: Head CT April 01, 2019. TECHNIQUE: Helical axial images of the head were obtained without IV contrast. Automated exposure control was utilized for the study. A dose lowering technique was utilized adhering to the principles of ALARA. FINDINGS: No acute intracranial hemorrhage, midline shift or mass effect is present. The ventricular system is stable. Basilar cisterns are patent. There are no extra-axial collections. White matter hypodensity suggests small vessel disease. A hypodensity within left basal ganglia is unchanged since head CT of April 01, 2019. A 9 mm hypodensity within the right cerebellar hemisphere is new since prior exam. There are no findings to suggest acute dural sinus thrombosis or acute territorial infarct. No calvarial fracture is identified. IMPRESSION: 1. No acute intracranial hemorrhage or mass effect. 2. 9 mm lacunar infarct within the right cerebellar hemisphere. 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 3. No calvarial fracture. ECG Additional Comments: 30-NOV-2019 05:50:30 [facility]-EDSTAT ROUTINE RETRIEVAL Poor data quality, interpretation may be adversely affected Ventricular-paced rhythm Abnormal ECG When compared with ECG of 12-FEB-2016 13:34, Vent. rate has increased BY 35 BPM 25mm/s 10mm/mV 150Hz 9.0.9 12SL 241 HD GINETTE: 12 Referred by: REFERRED SELF Unconfirmed Vent. rate 98 BPM OH interval * ms QRS duration 150 ms QT/QTc 392/500 ms P-R-T axes * -30 166 Code Status & VTE Plan Code Status Full code-discussed with the patient Supervising Physician Co-Signing Physician Notes Attending Attestation & admission note - Pt seen/examined, chart reviewed, care plan d/w LUIS Dudley. I agree w/ the white components of her documentation. 84yo female w/ history of a.fib, pacemaker, MVR ([employer] mechanical valve), chronic coumadin use, CKD stage 3- presenting with acute vertigo in her bathroom this am which led to unsteadiness and then a fall against the wall of her bathtub, striking the right chest wall. No visual field cuts. No ataxia. No motor or sensory loss. Vertigo has recurred in the hospital - with walking in hallway she developed 30-60 sec of spinning once again. Mentions having had UTI symptoms for 1 week. PMH, PSH, allergies, meds, sochx, famhx - reviewed VSS, afebrile gen - NAD, a/o x 3 eyes - no nystagmus; no visual field cuts by direct confrontation face - no droop heart - 2/6 systolic murmur LSB, RRR, s1 s2 lungs - CTA b/l chest - tender right mid-chest to palpation abd - soft NT ext - no edema neuro - mild ataxia finger/nose/finger maneuver on right; scant on left; strength 5/5 x 4 exts; no pronator drift; speech clear/fluent all imaging reviewed - CT head R cerebellar CVA labs - INR 2.5 Cr 1 A/P: 1. acute vertigo - central (stroke) vs peripheral (inner ear) - CTA head/neck; MRI brain if pacer is MR-compatible; echo; telemetry; neuro consult; PT, OT, speech; meclizine 2. UTI - rocephin; follow culture; transition to PO abx once sensitivities/ID return 3. CKD stage 3 4. a.fib / mechanical MV - coumadin; daily INR 5. chest contusion, right - lidoderm patches, tylenol prn; no rib fractures seen on imaging Adiel Romano MD 4. PG Care Time/CCT Total # of Minutes Spent Total Time Spent with Patient: Total time spent is greater than 50% in coordination of care (as documented) at patient's floor/unit and/or counseling patient: Coding Level of Care Code 74980 Initial Inpt Care Lvl 3 Diagnoses Stroke I63.9 CVA mechanism: unspecified Vertigo R42 Acute UTI (urinary tract infection) N39.0 Contusion of flank S30.1XXA Encounter type: initial encounter Chest wall contusion S20.211A Encounter type: initial encounter Laterality: right Permanent atrial fibrillation I48.2 Presence of cardiac pacemaker Z95.0 Mitral valve stenosis I05.0 History of mitral valve replacement Z95.2 Non-occlusive coronary artery disease I25.10 Sick sinus syndrome I49.5 Hypertension I10 Hypertension type: essential hypertension Hyperlipidemia E78.2 Hyperlipidemia type: mixed hyperlipidemia Gastroesophageal reflux disease K21.9 DVT prophylaxis Z29.9 (1) Contusion of flank Encounter type: initial encounter Qualified Code(s): S30.1XXA - Contusion of abdominal wall, initial encounter (2) Hyperlipidemia Hyperlipidemia type: mixed hyperlipidemia Qualified Code(s): E78.2 - Mixed hyperlipidemia (3) Chest wall contusion Encounter type: initial encounter Laterality: right Qualified Code(s): S20.211A - Contusion of right front wall of thorax, initial encounter (4) Hypertension Hypertension type: essential hypertension Qualified Code(s): I10 - Essential (primary) hypertension (5) Stroke CVA mechanism: unspecified Qualified Code(s): I63.9 - Cerebral infarction, unspecified
[2019-11-30] MEDS ORDERED: PHARMACIST DISCHARGE MED REC CONSULT PRN (10:03)
[2019-11-30 10:45] LABS: Estimated Average Glucose 131 mg/dl; Hemoglobin A1C 6.2 % (4.5-5.6)
[2019-11-30] MEDS: ACETAMINOPHEN 325 MG TAB PO PRN ×2 (11:17→18:06)
[2019-11-30] MEDS: PANTOprazole 40 MG TAB PO SCH (11:18)
[2019-11-30] MEDS: CLOBETASOL PROPIONATE 0.05% OINT 15 GM TUBE EXT SCH (11:18)
[2019-11-30] MEDS: ROSUVASTATIN CALCIUM 20 MG TAB PO SCH (11:18)
[2019-11-30] MEDS: METOPROLOL TARTRATE 25 MG TAB PO SCH ×2 (11:18→20:27)
[2019-11-30] MEDS: CALCIUM 600MG + VIT D 400 IU TAB PO SCH ×2 (11:18→20:27)
[2019-11-30] MEDS: ASPIRIN 81 MG ECTAB PO SCH (11:18)
--- NOTE | 2019-11-30 14:30 | XCELERA ---
[id number]
--- NOTE | 2019-11-30 16:06 | Electrocardiogram Report ---
Test Reason : Blood Pressure : / mmHG Vent. Rate : 098 BPM Atrial Rate : 125 BPM P-R Int : 000 ms QRS Dur : 150 ms QT Int : 392 ms P-R-T Axes : 000 -30 166 degrees QTc Int : 500 ms Poor data quality, interpretation may be adversely affected Ventricular-paced rhythm Abnormal ECG When compared with ECG of 12-FEB-2016 13:34, Vent. rate has increased BY 35 BPM Confirmed by Jose Garcia ([id number]) on 11/30/2019 4:06:46 PM Referred By: REFERRED SELF Confirmed By:Saqib Garcia
[2019-12-01] MEDS: ACETAMINOPHEN 325 MG TAB PO PRN ×3 (00:07→17:08)
[2019-12-01] MEDS ORDERED: TRAMADOL HCL 50 MG TABLET PO STA (03:31)
[2019-12-01 08:09] LABS: Hematocrit (blood only) 39.2 % (37-47); Hemoglobin 13.1 g/dL (12.0-16.0); Mean Corpuscular Hemoglobin 29.4 pg (25-34); Mean Corpuscular Hgb Conc 33.4 g/dL (32-36); Mean Corpuscular Volume 87.9 fL (80-100); Mean Platelet Volume 10.8 fL (7.4-10.4); Platelet Count 187 K/uL (130-400); RDW Coefficient of Variation 14.5 % (11.5-14.5); RDW Standard Deviation 46.7 fL (36.4-46.3); Red Blood Count 4.46 M/uL (4.2-5.4); White Blood Count 6.96 K/uL (4.8-10.8)
[2019-12-01] MEDS: cefTRIAXone SODIUM 2,000 MG in DEXTROSE 5% 50 ML IV SCH (08:11)
[2019-12-01] MEDS: CLOBETASOL PROPIONATE 0.05% OINT 15 GM TUBE EXT SCH (08:12)
[2019-12-01] MEDS: CALCIUM 600MG + VIT D 400 IU TAB PO SCH ×2 (08:12→21:52)
[2019-12-01] MEDS: ASPIRIN 81 MG ECTAB PO SCH (08:13)
[2019-12-01] MEDS: METOPROLOL TARTRATE 25 MG TAB PO SCH ×2 (08:13→21:52)
[2019-12-01] MEDS: PANTOprazole 40 MG TAB PO SCH (08:13)
[2019-12-01] MEDS: ROSUVASTATIN CALCIUM 20 MG TAB PO SCH (08:13)
[2019-12-01 08:44] LABS: BUN Creatinine Ratio 17.5 (10-20); Calcium 9.4 mg/dl (8.5-10.1); Creatinine Clr Calc Pharmacy 34.7 ml/min; Est GFR (African American) 65.3; Est GFR (Non-African American) 56.4; Potassium 3.8 mmol/L (3.5-5.1)
--- NOTE | 2019-12-01 09:29 | Neurology Consultation ---
Date of Consultation December 01, 2019 Assessment & Plan (1) Stroke: This patient has a small subacute to chronic appearing lacunar infarct within the right cerebellar hemisphere. The significance of this finding in the context of her current symptomatology is not completely clear. Her presentation does seem to be more consistent with peripheral vertigo, possibly benign positional paroxysmal vertigo. She did not present with any other symptoms that would typically be associated with brainstem ischemia such as diplopia, dysarthria, focal weakness or sensory loss. Nonetheless, vertebrobasilar insufficiency is not completely excluded. I would recommend CT angiography of the head and neck. Otherwise, patient should continue on her current medication regimen. She already takes daily low-dose aspirin, warfarin, and is on antihypertensive therapy. She is a lifelong non-smoker and has only a marginally elevated hemoglobin A1c without a known history of diabetes mellitus. In light of this patient's cardiac history, the recently identified cerebellar infarct could be cardioembolic. However, her pro time has been therapeutic. Embolism in the setting of endocarditis is unlikely given this patient's lack of fever and other signs or symptoms suggestive of septic emboli. (2) Vertigo: As above, patient's presentation seems more consistent with peripheral vertigo, possibly benign positional paroxysmal vertigo. She is currently asymptomatic. However, if she were to experience a recurrence I would recommend a trial of meclizine 12.5 to 25 mg, every 4-6 hours as needed. Otherwise, I suspect her vertigo to resolve on its own. If her vertigo remains persistent, a trial of physical therapy with Maximino maneuvers would be appropriate. Thank you for the consult. History of Present Illness Reason for Consultation: Right cerebellar infarct Requesting Physician: Muriel Dudley PA-C Attending Physician: Adiel Romano History of Present Illness The patient is an 84-year-old female with a chief complaint of vertigo that she noted upon awakening from bed at home, early yesterday morning. She complains of an intense spinning sensation that was worse with lying flat. She attempted to walk to the bathroom and subsequently fell, landing on her right side. She did not strike her head. There was no loss of consciousness. She complained of associated nausea and emesis. No associated diplopia, dysarthria, or headache. She complains of some sinus pressure and an unusual itching sensation on her ears. No ear pain, tinnitus, or hearing loss reported. No rash. She denies a history of vertigo. Her symptoms were persistent at the time of her initial assessment in the emergency department. A CT of the head revealed a subacute to chronic appearing small right cerebellar lacunar infarct. This morning, the patient indicates that her symptoms have resolved. 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 Patient also has a cardiac pacemaker, hypertension, and hyperlipidemia. In addition to warfarin, she takes daily low- dose aspirin, rosuvastatin, a beta-yoel, and MICH inhibitor as an outpatient. Allergies Allergy/AdvReac Type Severity Reaction Status Date / Time nitrofurantoin Allergy Mild CAN'T Verified 11/30/19 06:05 REMEMBER Penicillins Allergy Mild CAN'T Verified 11/30/19 06:05 REMEMBER albuterol [From Ventolin HFA] Allergy Unknown Unknown Verified 11/30/19 06:05 amoxicillin Allergy Unknown Unknown Verified 11/30/19 06:06 atorvastatin [From Lipitor] Allergy Unknown Unknown Verified 11/30/19 06:06 hydrocodone Allergy Unknown CAN'T Verified 11/30/19 06:05 REMEMBER Home Medications Home Medications Medication Instructions Recorded Confirmed Type aspirin 81 mg tablet,delayed 81 mg PO QAM tab 03/31/18 11/30/19 History release calcium carb-vit D3-minerals 600 1 tab PO BID 03/31/18 11/30/19 History mg calcium-400 unit tablet clobetasol 0.05 % topical ointment 1 applic TOPICAL DAILY #1 gm 02/17/1911/29 History clindamycin HCl 150 mg capsule 600 mg PO PRN PRN cap 05/18/19 11/30/19 History omeprazole 40 mg capsule,delayed 40 mg PO DAILY #90 cap 05/26/19 11/30/19 Rx release rosuvastatin 20 mg tablet 20 mg PO DAILY #90 tab 05/26/19 11/30/19 Rx warfarin 2.5 mg tablet See Rx Instructions PO UD tab 07/14/19 11/30/19 History lisinopril 2.5 mg tablet 2.5 mg PO DAILY #90 tab 09/06/19 11/30/19 Rx metoprolol tartrate 25 mg tablet 12.5 mg PO BID #90 tab 09/06/19 11/30/19 Rx Patient History Medical History Antiplatelet or antithrombotic long-term use Atypical chest pain Carpal tunnel syndrome Cyst of eye Dupuytrens contracture History of actinic keratosis History of cough History of fatigue History of osteoporosis History of pacemaker Jaw pain Non-ST elevation myocardial infarction (NSTEMI) Rheumatic heart disease Tremor Surgical History History of breast biopsy BENIGN LEFT BREAST BIOPSY History of History of cataract surgery History of cholecystectomy History of dilation and curettage History of mitral valve replacement (Chronic) #29 [facility] PROSTHETIC MITRAL VALVE. Personal history of heart valve replacement (Inactive) Family History Father , AT AGE 94; METASTATIC BLADDER CANCER Bladder cancer Patient's father is Son , IN 2007 Colon cancer Mother , AT AGE 85 Coronary heart disease Gastric cancer Social History Preferred Language: Austrian Communication Ability: Effective Chain Maker Hand Required: No Beliefs That Will Affect Care: None marital status: Current Living Situation: Spouse current occupational status: retired Other Information That Helps Us Care for You: No Feels Safe at Home: Yes Safety Concerns: Feels Safe At This Time Smoking Status: Never smoker Do You Dip or Chew Tobacco: No ; Second Hand Exposure: No ; Tobacco Cessation Education Requested by Patient: No Hx Alcohol Use: No Hx Substance Use: No caffeine: Yes Seatbelt Use: always Review of Systems Constitutional: no fever and no chills Eyes: no blind spots and no diplopia Ear, Nose, Mouth, Throat: as per Subjective / HPI and + dizziness; no ear pain, no tinnitus and no hearing loss Respiratory: no cough and no dyspnea Cardiovascular: no chest pain and no palpitations Gastrointestinal: as per Subjective / HPI, + nausea and + vomiting Genitourinary: + dysuria; no urinary incontinence Musculoskeletal: no neck pain and no myalgia Integumentary: no rash and no lesions Neurologic: as per Subjective / HPI and + unsteadiness; no localized weakness, no loss of sensation, no headache(s), no confusion and no memory loss Psychiatric: no depression and no anxiety Hematologic / Lymphatic: no easy bleeding Exam (Neuro) Constitutional: well developed and well nourished; no acute distress Eyes: normal visual trevino by confrontation, PERRL, normal accommodation and EOM intact bilaterally; no fundoscopic abnormality, no nystagmus and no papilledema Cardiovascular: Vessels: normal carotid upstroke; no carotid bruit Neurologic: Oriented to:: Person, Place and Time Memory: Short Term Intact and Remote Intact Attention: Span Intact and Concentration Intact Language: Naming Objects and Repeating Phrases Speech Fluency: negative Dysarthria Speech Aphasia: negative Aphasia Fund of Knowledge: Current Events, Past History and Vocabulary Cranial Nerves: Normal II (Visual trevino full to confrontation, visual acuity normal), III, IV, (Pupils equal round reactive to light and accommodation, eye movements normal), V (Facial sensation intact), VII (There is no facial droop or weakness), VIII (Hearing intact), IX, X (Palate elevates to midline), XI (Shoulder shrug intact) and XII (Tongue protrudes to midline) Motor Strength: Normal Lower Extremities and Normal Upper Extremities; negative Pronator Drift Motor Tone: Normal Lower Extremities and Normal Upper Extremities Muscle Bulk/Involuntary Movements: No Involuntary Movements; negative Muscle Atrophy Sensation: Light Touch Intact, Pain/Temperature Intact, Vibration Intact and Proprioception Intact Coordination: Normal; negative Limited Balance, Dysdiadochokinesia, Finger-Nose Abnormal and Heel-Gamble Abnormal Deep Tendon Reflexes: Rt Triceps: 2+, Lt Triceps: 2+, Rt Biceps: 2+, Lt Biceps: 2+, Rt Brachioradialis: 2+, Lt Brachioradialis: 2+, Rt Patellar: 2+, Lt Patellar: 2+, Rt Ankle: 2+ and Lt Ankle: 2+ Special Tests: negative Babinski Present Gait: Normal Station and Gait Results & Data ([facility]) Vital Signs (Past 12 Hours) Vital Signs Temp Pulse Pulse Resp BP Pulse Ox 12/01/19 07:58 36.6 C 64 18 127/72 96 12/01/19 03:32 36.6 C 78 20 126/81 95 12/01/19 02:52 60 11/30/19 23:38 36.9 C 63 20 92/53 L 95 Laboratory Results WBC 6.96, hemoglobin 13.1, hematocrit 39.2, platelet count 187, INR 2.5, sodium 140, potassium 3.8, BUN 16, creatinine 0.92, glucose 103, calcium 9.4, triglycerides 97, cholesterol 103, LDL 40, VLDL 19, HDL [address] of the head is negative for hemorrhage or mass-effect. There is a 9 mm lacunar infarct within the right cerebellar hemisphere, subacute to chronic in appearance, not seen on previous CT of the head done in March 2019. I reviewed the images as well as the radiologist's interpretation of this test. A CT of the cervical spine is negative for fractures or subluxation. An echocardiogram is negative for mass or vegetation. There is low normal left ventricular systolic function. There is severe dilatation of both the left and right atria. There is a bileaflet [employer] mechanical prosthesis. Coding Level of Care Code 64220 Initial In Care Lvl 3 Diagnoses Stroke I63.9 CVA mechanism: unspecified Vertigo R42 (1) Stroke CVA mechanism: unspecified Qualified Code(s): I63.9 - Cerebral infarction, unspecified
[2019-12-01] MEDS ORDERED: OPTIRAY 320 125ml IV PRN (10:13)
--- NOTE | 2019-12-01 10:26 | CT Scan Report ---
HEAD CTA HISTORY: Right cerebellar stroke, rule out VBI TECHNIQUE: Multiaxial CT images of the head were performed both before and after the intravenous admi nistration of contrast to evaluate the major cerebral vessels. Maximum intensity projection images we re also obtained. A dose lowering technique was utilized adhering to the principles of ALARA. COMPARISON: Head CT 11/30/2019. FINDINGS: There is no mass, hematoma, midline shift. Mild atrophy and microvascular ischemic changes are again noted. A few old lacunar infarcts within the bilateral cerebellar hemisphere are again note d. No definite acute infarct identified. The paranasal sinuses and mastoid air cells are clear. Visua lized intracranial internal carotid arteries, distal vertebral arteries, and basilar artery are widel y patent. There is no significant stenosis, occlusion, or aneurysm seen within the bilateral ACAs, MC As, or auto care center manager. The major dural venous sinuses are patent. IMPRESSION: No significant stenosis, occlusion, or aneurysm within the [place]. Old bilateral cerebellar lacunar infarcts are again noted. ACT 112: Negative or not required by law. Electronically signed by: Michael Ackerman M.D. 12/01/2019 10:25 AM
--- NOTE | 2019-12-01 10:31 | CT Scan Report ---
CT ANGIOGRAPHY OF THE NECK WITH CONTRAST CLINICAL HISTORY: Right cerebellar stroke, rule out VBI COMPARISON STUDY: No previous studies for comparison. Technique: CT angiography of the carotid and vertebral arteries was obtained using [employer] 320 IV and 3D reconstruction on an independent workstation. NASCET criteria was utilized. Automated exposure c ontrol was utilized for the study. A dose lowering technique was utilized adhering to the principles of ALARA. CT DOSE: 914.90 mGy.cm Findings: Incidental note is made of several thyroid nodules. No cervical spine fracture is noted. Th ere is no cervical lymphadenopathy. There is minimal atherosclerotic plaque within the major vessels within neck. There is no stenosis. No dissection or aneurysmal dilatation is noted. No intraluminal t hrombus is noted. The bilateral common carotid, cervical internal carotid and vertebral arteries are patent. Please note that the CTA of the head will be reported separately. IMPRESSION: Unremarkable CTA of the neck. No dissection or stenosis. Minimal plaque. ACT 112: Negative or not required by law. Electronically signed by: Williams Pretty M.D. 12/01/2019 10:29 AM
[2019-12-01 11:10] LABS: INR 2.2 (0.9-1.1); Prothrombin Time 21.8 Seconds (9.0-12.0)
[2019-12-01] MEDS: MECLIZINE 12.5 MG TAB PO SCH ×2 (13:33→21:51)
[2019-12-01] MEDS: LIDOCAINE 5% 1 PATCH TD SCH (13:33)
[2019-12-01] MEDS ORDERED: WARFARIN SOD 1.25 MG TAB PO ONE (21:00)
[2019-12-01] MEDS ORDERED: WARFARIN SOD 2.5 MG TAB PO ONE (21:00)
[2019-12-01] MEDS: TRAMADOL HCL 50 MG TABLET PO PRN (21:51)
--- NOTE | 2019-12-01 22:27 | Hospitalist Progress Note ---
Date of Service December 01, 2019 Assessment & Plan (1) Vertigo: Appreciate Dr Nicole's consultation. Although we cannot obtain MRI brain due to pacer-incompatibility, the b/l cerebellar strokes seen on CT / CTA are likely old. She has had no other symptoms besides mild vertigo. Agree with Dr Nicole this is likely peripheral vertigo from BPV or acute labrynthitis. Schedule meclizine 12.5mg TID; at discharge field counsel to use prn at home. (2) Stroke: OLD b/l cerebellar strokes as seen on CTAs today cont asa, coumadin and statin for secondary prevention echo w/o thrombus or source of embolus CTAs w/o stenosis or aneurysm (3) Acute UTI (urinary tract infection): 2nd GNR cont rocephin; convert to PO abx on 12/01 once final cx is resulted (4) Chest wall contusion: right side, 2nd to fall in setting of vertigo. CT did not reveal hemorrhage or rib Fx. tylenol prn tramadol prn lidoderm patches consider ice, then heat (5) Permanent atrial fibrillation: cont BB cont coumadin pacer in place (6) Presence of cardiac pacemaker: Placed in 2007, battery replaced in 2016 (7) History of mitral valve replacement: [facility] mechanical INR goal 2.5 to 3.5 follows with [facility] coumadin clinic valve on echo functioning well (8) Non-occlusive coronary artery disease: History of NSTEMI cont asa, statin, BB (9) Sick sinus syndrome: s/p pacemaker placement (10) Hypertension: Continue lisinopril 2.5 daily, metoprolol tartrate 12.5 mg BID Controlled (11) Hyperlipidemia: Continue rosuvastatin 20 mg daily LDL well within goal (12) Gastroesophageal reflux disease: cont PPI (13) Chronic kidney disease, stage 3a: Cr stable BMP in am due to CT contrast (14) DVT prophylaxis: coumadin; INR am cleared by PT/OT for home updated 11/30 home on 12/01 Admission and Anticipated Discharge Date Admission Date: November 30, 2019 Subjective patient feeling well except - minimal, occasional vertigo with movement ongoing right chest wall discomfort - mild eating well no new neuro symptoms no vomiting "My UTI is getting better" (less dysuria) tele - pacing or a. fib Review of Systems Constitutional: no fever Respiratory: no cough and no dyspnea Cardiovascular: + chest pain (chest wall on right ) Gastrointestinal: no abdominal pain Physical Exam Constitutional: well developed and well nourished; no acute distress and no altered mental status Eyes: no nystagmus ENMT: external ear and nose normal, oropharynx normal Respiratory: normal respiratory effort, lungs clear to auscultation Cardiovascular: Rate/Rhythm: regular rate and regular rhythm Heart Sounds: normal S1, normal S2 and + murmur (2/6 LSB - systolic ) Vessels: posterior tibial pulses present and dorsalis pedis pulses present; no JVD Extremities: no edema Gastrointestinal (Abdomen): normal bowel sounds, soft, nontender, no hepatosplenomegaly Neurologic: deep tendon reflexes 2+ bilaterally and moves all extremities; no focal motor deficits Speech / Cognition: normal speech Coordination: + abnormal [id number] test (b/l - mild ) Psychiatric: A+Ox3, euthymic affect Results & Data Results & Data ([facility]) Vital Signs (Past 12 Hours) Vital Signs Temp Pulse Resp BP Pulse Ox 12/01/19 19:03 36.8 C 65 18 136/78 95 12/01/19 15:04 36.7 C 62 18 110/64 95 12/01/19 11:27 36.6 C 62 16 111/67 95 Laboratory Results Laboratory Results - last 24 hr 12/01/19 12/01/19 12/01/19 07:38 07:38 10:47 WBC 6.96 RBC 4.46 Hgb 13.1 Hct 39.2 MCV 87.9 MCH 29.4 MCHC 33.4 RDW Std Deviation 46.7 H RDW Coeff of Alicia 14.5 Plt Count 187 MPV 10.8 H PT 21.8 H INR 2.2 H Sodium 140 Potassium 3.8 Chloride 107 Carbon Dioxide 25 Anion Gap 9.0 BUN 16 Creatinine 0.92 Est Cr Clr Drug Dosing 34.7 Est GFR ( Amer) 65.3 Est GFR (Non-Af Amer) 56.4 BUN/Creatinine Ratio 17.5 Glucose 103 H Calcium 9.4 Triglycerides 97 Cholesterol 103 LDL Cholesterol, Calc 40 VLDL Cholesterol, Calc 19 HDL Cholesterol 44 Cholesterol/HDL Ratio 2 PG Care Time/CCT Total # of Minutes Spent Total Time Spent with Patient: Total time spent is greater than 50% in coordination of care (as documented) at patient's floor/unit and/or counseling patient: Coding Level of Care Code 76210 Subseq Hosp Care Lvl 3 Diagnoses Vertigo R42 Stroke I63.9 CVA mechanism: unspecified Acute UTI (urinary tract infection) N39.0 Chest wall contusion S20.211A Encounter type: initial encounter Laterality: right Permanent atrial fibrillation I48.2 Presence of cardiac pacemaker Z95.0 History of mitral valve replacement Z95.2 Non-occlusive coronary artery disease I25.10 Sick sinus syndrome I49.5 Hypertension I10 Hypertension type: essential hypertension Hyperlipidemia E78.2 Hyperlipidemia type: mixed hyperlipidemia Gastroesophageal reflux disease K21.9 Esophagitis presence: esophagitis presence not specified Chronic kidney disease, stage 3a N18.3 DVT prophylaxis Z29.9 (1) Stroke CVA mechanism: unspecified Qualified Code(s): I63.9 - Cerebral infarction, unspecified (2) Chest wall contusion Encounter type: initial encounter Laterality: right Qualified Code(s): S20.211A - Contusion of right front wall of thorax, initial encounter (3) Hypertension Hypertension type: essential hypertension Qualified Code(s): I10 - Essential (primary) hypertension (4) Hyperlipidemia Hyperlipidemia type: mixed hyperlipidemia Qualified Code(s): E78.2 - Mixed hyperlipidemia (5) Gastroesophageal reflux disease Esophagitis presence: esophagitis presence not specified Qualified Code(s): K21.9 - Gastro-esophageal reflux disease without esophagitis
[2019-12-02] MEDS: ACETAMINOPHEN 325 MG TAB PO PRN (00:15)
[2019-12-02 05:59] LABS: INR 1.6 (0.9-1.1); Prothrombin Time 16.5 Seconds (9.0-12.0)
[2019-12-02 06:14] LABS: Calcium 9.3 mg/dl (8.5-10.1); Creatinine Clr Calc Pharmacy 36.3 ml/min; Est GFR (Non-African American) 59.5
[2019-12-02] MEDS: cefTRIAXone SODIUM 2,000 MG in DEXTROSE 5% 50 ML IV SCH (08:12)
[2019-12-02] MEDS: TRAMADOL HCL 50 MG TABLET PO PRN (08:12)
[2019-12-02] MEDS: MECLIZINE 12.5 MG TAB PO SCH ×2 (08:19→13:26)
[2019-12-02] MEDS: ASPIRIN 81 MG ECTAB PO SCH (08:19)
[2019-12-02] MEDS: ROSUVASTATIN CALCIUM 20 MG TAB PO SCH (08:19)
[2019-12-02] MEDS: CALCIUM 600MG + VIT D 400 IU TAB PO SCH (08:19)
[2019-12-02] MEDS: PANTOprazole 40 MG TAB PO SCH (08:20)
[2019-12-02] MEDS: METOPROLOL TARTRATE 25 MG TAB PO SCH (08:20)
[2019-12-02] MEDS: CLOBETASOL PROPIONATE 0.05% OINT 15 GM TUBE EXT SCH (08:21)
--- NOTE | 2019-12-02 09:45 | Discharge Summary ---
Date of Service December 02, 2019 Admission HPI Per Admitting Provider This is an 84 yo F with PMHx of nonobstructive CAD with NSTEMI in 2011, atrial fibrillation on Coumadin, rheumatic valvular heart disease with mitral stenosis who underwent mitral valve replacement in 1988, moderate tricuspid regurg, mild pulmonary hypertension, SSS, cardiac pacemaker placed in 2007, battery changed in 2015, HTN, HLD, GERD, and osteoporosis. Pt presents after developing vertigo, falling at home in the bathroom around 4 AM, and found to have a 9 mm lacunar infarct within the right cerebellum infarct on imaging, appearance favors a subacute to chronic lacunar infarct, and is different since last CT of the head in March 2019. She reports that during this episode of vertigo, she had been in the bathroom due to increased frequency and burning which has been going on x1 week. She had been increasing her water intake and drinking cranberry juice thinking that she did have a urinary tract infection but thought she was "beating it". She also developed dry heaves this morning as well as the room spinning around her, but did not vomit. Patient fell and hit her right side of her ribs into the side of the tub off of the toilet and called for help because she was unable to get up by herself. She lives at home with her who called EMS. She has had urinary tract infections in the past however no symptoms like vertigo to accompany the symptoms in the past. She has been taking her Coumadin as prescribed as well as all her other medications. Currently she has complaints of right-sided rib pain rated as a 6 out of 10, but tolerable. She has not taken any pain medication for this since being here. Discharge Data Consultations 11/30/19 08:30 ED Decision to Admit Stat 11/30/19 10:03 Consult Case Management - Discharge Planning Routine Consult Neurology Routine Hospital Course (1) Vertigo: Patient was admitted to the [facility] floor with telemetry. The stroke protocol set was utilized. She was seen in consultation by neurology. An MRI was contraindicated due to the patient's device; but review of CT imaging was consistent with a small subacute to chronic appearing lacunar infarct in the right cerebellar hemisphere. Neurology suggested that the patient's presentation seem more consistent with a peripheral vertigo, possibly benign positional paroxysmal vertigo. The patient did not present with any other symptoms typically associated with brain stem ischemia such as diplopia, dysarthria, focal weakness or sensory loss. A CT angiography of the head neck was unremarkable. The patient was noted to already be on low-dose aspirin, warfarin and antihypertensive therapy; as such no additional medication recommendations were made except to add meclizine as needed vertigo. Patient also was found to have a UTI, Klebsiella pneumonia, dumont sensitivity. She was treated with ceftriaxone while in the hospital and she noted improvement in her symptoms (less dysuria). She was converted to oral Keflex upon discharge. Coumadin clinic will be notified of the medication change. The patient was therapeutic upon admission. Her Coumadin was held on her first night of hospitalization secondary to the fall and ecchymosis she was slightly subtherapeutic on hospital day #2. She will return to her home dose upon discharge with follow-up with discretion of the Coumadin clinic next week. On the day of exam, the patient was feeling generally well except for right back pain which increased with movement. It was no worse than yesterday but she does note it is worse when she gets out of bed. She tells me she had no problems going to the bathroom this morning although it was mildly painful. She was seen by physical therapy and occupational therapy and cleared to return home. I discussed with the patient the potential side effects of the tramadol as well as the meclizine. We discussed how the medications may make her sleepy, and may increase fall risk. She will ambulate only with the assistance of family. She was tolerating both medications well in the hospital and she noted relief in the pain with the tramadol. Exam She is alert and oriented. No acute distress. She has good understanding of her admission diagnosis as well as the suggestion of neurology. HEENT is grossly unremarkable. Neck is supple. Trachea is midline. Heart sounds are distant. Lungs clear in the apices, slightly decreased in the bases bilaterally. She has just right of midline ecchymosis in the low thoracic and high lumbar area.; There is no tenderness with palpation of the spinal processes in this area. Extremities are without edema. Compression stockings are on. Discharge Instructions Follow-up with PCP in 1 to 2 weeks. Follow-up with Coumadin clinic (we will find the Coumadin clinic of the discharge and the new medications, specifically Keflex)
[2019-12-02] MEDS: LIDOCAINE 5% 1 PATCH TD SCH (11:15)
[2019-12-02] MEDS ORDERED: STROKE PATIENT DISCHARGE STA (11:26)
[2019-12-02] MEDS ORDERED: WARFARIN SOD 2.5 MG TAB PO SCH (16:00)
== END 2019-12-02 14:00 | disposition home or self-care (01) | DRG 149 ==
LOC: ED 05:44 → SUATTDRO 08:51 → 2W 08:51

== ENCOUNTER 2022-11-16 08:57 | Inpatient (IN) ==
[2022-11-16] MEDS ORDERED: OXYMETAZOLINE 0.05% 30 ML BTL ONE (09:00)
[2022-11-16] MEDS ORDERED: ONDANSETRON INJ 2 MG/ML 2 ML VIAL ONE (09:06)
[2022-11-16] MEDS ORDERED: HEMADERM ENT APPLICATOR KIT TOP ONE (09:23)
[2022-11-16 09:27] LABS: iSTAT Creatinine 1.1 mg/dl (0.6-1.3); iSTAT Hemoglobin 11.6 g/dl (12.0-16.0); iSTAT Ionized Calcium 1.24 mmol/l (1.12-1.32); iSTAT Potassium 4.7 mmol/L (3.3-5.0)
[2022-11-16] MEDS ORDERED: ONDANSETRON INJ 2 MG/ML 2 ML VIAL IV STA ×2 (09:45→09:58)
[2022-11-16 09:46] LABS: Basophils # (auto) 0.06 K/uL (0-0.2); Basophils % (auto) 0.6 %; Eosinophils # (auto) 0.75 K/uL (0-0.50); Eosinophils % (auto) 7.3 %; Hematocrit (blood only) 34.9 % (37.0-47.0); Hemoglobin 11.7 g/dl (12.0-16.0); Immature Granulocytes # (auto) 0.04 K/uL (0.01-0.20); Immature Granulocytes % (auto) 0.4 %; Lymphocytes # (auto) 3.44 K/uL (1.2-3.4); Lymphocytes % (auto) 33.3 %; Mean Corpuscular Hemoglobin 30.2 pg (25.0-34.0); Mean Corpuscular Hgb Conc 33.5 g/dL (32.0-36.0); Mean Corpuscular Volume 90.2 fL (80.0-100.0); Mean Platelet Volume 10.5 fL (9.4-12.4); Monocytes # (auto) 0.96 K/uL (0.11-0.59); Monocytes % (auto) 9.3 %; Neutrophils # (auto) 5.09 K/uL (1.40-6.50); Neutrophils % (auto) 49.1 %; Platelet Count 198 K/uL (130-400); RDW Coefficient of Variation 14.3 % (11.5-14.5); RDW Standard Deviation 47.1 fL (36.4-46.3); Red Blood Count 3.87 M/uL (4.20-5.40); White Blood Count 10.34 K/ul (4.8-10.8)
[2022-11-16] MEDS ORDERED: TXA 10% Non-IV Routes 100 MG/ML VIAL ONE ×2 (09:47→10:15)
[2022-11-16 09:50] LABS: Albumin Globulin Ratio 1.3 (0.9-2); Albumin Level 3.6 gm/dl (3.4-5.0); Bilirubin,Total 0.5 mg/dl (0.2-1.0); Calcium 9.1 mg/dl (8.6-10.3); Creatinine Clr Calc Pharmacy 26.4 ml/min; Est GFR (African American) 52.1 ml/min; Globulin 2.8 gm/dl (2.5-4.0); Potassium 4.5 mmol/L (3.5-5.1); Total Protein 6.4 gm/dl (6.0-8.3)
[2022-11-16 10:10] LABS: INR 2.6 (0.9-1.1); Prothrombin Time 26.6 Seconds (9.0-12.0)
[2022-11-16] MEDS ORDERED: CEFDINIR 300 MG CAP PO STA (13:19)
--- NOTE | 2022-11-16 13:58 | History & Physical Report ---
Date of Service November 16, 2022 Assessment & Plan (1) Epistaxis: Plan: Admit med/surg to monitor for any bleeding Will continue coumadin for now and monitor for any bleeding, INR not significantly elevated at 2.7 per supervising provider Her goal INR 2.5-3.5 Hold ASA for now Afrin available prn x 1 more dose-- call if any issues Would keep rhino rocket in place, see if CM navigator able to arrange f/u [facility]na [facility] -- she stated she saw a female about 2-3 years ago, possible Dr Sofia If not able to have f/u appt would call in AM to discuss as patient stating difficult getting transportation Monitor CBC/BMP/Mag/INR in AM (2) Permanent atrial fibrillation: Plan: continues on coumadin rates controlled, will continue metoprolol mag/k ~2/4 INR in AM (3) History of mitral valve replacement: Plan: continuing coumadin, INR goal 2.5-3.5 (4) Antiplatelet or antithrombotic long-term use: (5) Hypertension: Plan: continues metoprolol holding lisinopril for lower BPs, can resume in AM if BP/kidney function remain stable (6) Hyperlipidemia: Plan: continue statin (7) Sick sinus syndrome: Plan: pacemaker present, follows with Dr Meza (8) Cardiomyopathy: Plan: noted Plan PT consulted given elderly female/lives alone to see if any assistance/HH required at discharge F/U ENT at discharge History of Present Illness Chief Complaint: nose bleed Primary Care Provider: Abelardo Mortensen MD 87yo female lives alone, PMHx significant for mitral valve replacement in 1988 at [facility] (follows coag clinic/Dr Meza), on coumadin She also has pacemaker for hx SSS, cardiomyopathy, permanent atrial fibrillation, HTN, HLD, CKD III. Apparently the noose bleed from her right nose started around 0700 and EMS at 0800 with uncontrolled bleeding. Afrin provided by ER provider, TXA Given elderly age/lives alone, monitoring overnight to ensure no further bleeding discussed with patient however she was interested in going home to clean up the blood at home and given bleeding was unable to be stopped until she came to the ER, good idea to monitor for any repeat issues. She does use nasal saline on occasion but no flonase or similar, she does have history of fractured nose/deviated septum and seen Brandie ENT in the past at [facility]. No active bleeding at present w/ nasal plug in place She notes she had been nauseated/vomiting but nothing since bleeding stopped. She takes coumadin 3mg daily as well as boost supplementation/ensure to help with protein. Goal INR 2.5-3.5 for her mitral valve replacement. Sister in law at bedside She feels more comfortable monitoring overnight and d/c w/ ENT follow up. Transportation may been an issue as lives in [place] and travel to [place] then back to [facility] would need to be done by SELINA. Discussed could reach out by phone for discussion but would ideally like f/u in person. NO chest pain/shortness of breath. They are concerned she may wait for a bed in the ER like SELINA couple months ago. Discussed hopefully will be quicker this time. No fevers/chills. Does have some clot to the back of her throat present. To alert nursing of any CP/SOB/lightheaded/dizziness or worsening bleeding. Hgb dropped from prior, 2nd to epistaxis since 7am until stopped in ER. GIven cefdinir, zofran, afrin, TXA. Ca 9.1, inonized Ca 1.24. BUN/Cr slightly elevated above baseline 04/08.09. Has not had anything to eat at this time. Allergies Allergy/AdvReac Type Severity Reaction Status Date / Time nitrofurantoin Allergy Mild CAN'T Verified 11/02/22 14:19 REMEMBER Penicillins Allergy Mild CAN'T Verified 11/02/22 14:19 REMEMBER albuterol [From Ventolin HFA] Allergy Unknown Unknown Verified 11/02/22 14:19 amoxicillin Allergy Unknown Unknown Verified 11/02/22 14:19 atorvastatin [From Lipitor] Allergy Unknown Unknown Verified 11/02/22 14:19 hydrocodone Allergy Unknown CAN'T Verified 11/02/22 14:19 REMEMBER doxycycline AdvReac Intermediate nausea and Verified 11/02/22 14:19 vomiting Home Medications Medication Instructions Recorded Confirmed Type aspirin 81 mg tablet,delayed 81 mg PO QAM 03/31/18 11/16/22 History release (Adult Low Dose Aspirin) calcium carb-vit D3-minerals 600 1 tab PO DAILY 03/31/18 11/16/22 History mg calcium-400 unit tablet multivitamin 1 tab PO DAILY 03/05/20 11/16/22 History clindamycin HCl 300 mg capsule 300 mg PO .COMPLEX 0 days #10 caps 08/11/21 11/16/22 Rx lisinopril 20 mg tablet 20 mg PO DAILY #90 tabs 05/07/22 11/16/22 Rx metoprolol succinate 50 mg 50 mg PO DAILY #90 tabs 05/07/22 11/16/22 Rx tablet,extended release 24 hr omeprazole 40 mg capsule,delayed 40 mg PO QAM #90 caps 06/01/22 11/16/22 Rx release rosuvastatin 20 mg tablet (Crestor) 20 mg PO DAILY #90 tabs 10/01/22 11/16/22 Rx clobetasol 0.05 % topical ointment 1 applic topical .COMPLEX PRN 11/16/22 11/16/22 History Unknown warfarin 3 mg tablet See Rx Instructions PO UD #90 tabs 11/16/22 11/16/22 Rx Past Med/Surg History Medical History (Updated 11/16/22 @ 19:55 by Va Crane MD) Antiplatelet or antithrombotic long-term use Atypical chest pain Carpal tunnel syndrome Chest wall contusion Contusion of flank Cyst of eye Dupuytrens contracture History of actinic keratosis History of cough History of fatigue History of osteoporosis History of pacemaker Jaw pain Mitral valve stenosis Non-ST elevation myocardial infarction (NSTEMI) Rheumatic heart disease Tremor Surgical History (Updated 11/16/22 @ 19:55 by Va Crane MD) History of breast biopsy BENIGN LEFT BREAST BIOPSY History of History of cataract surgery History of cholecystectomy History of dilation and curettage History of mitral valve replacement #[address] [facility] PROSTHETIC MITRAL VALVE. Personal history of heart valve replacement Family History Father , AT AGE 94; METASTATIC BLADDER CANCER Bladder cancer Patient's father is Son , IN 2007 Colon cancer Mother , AT AGE 85 Coronary heart disease Gastric cancer Myocardial infarction Denies family history of Ovarian cancer Prostate cancer Breast cancer Social History Smoking Status: Never smoker Second Hand Exposure: No; Do You Dip or Chew Tobacco: No; Hx Alcohol Use: No Hx Substance Use: No Preferred Language: Belarusian Communication Ability: Effective Visual Impairment: No Limitations Hearing Ability: Normal Security Systems Installer Required: No Beliefs That Will Affect Care: None marital status: / Current Living Situation: Alone current occupational status: retired How many Children do You have: 1 How many Children do You have Comment: 1 CHILD - FROM [facility]. Other Information That Helps Us Care for You: No Feels Safe at Home: Yes Safety Concerns: Feels Safe At This Time Childhood Exposure to Second-Hand Smoke: No Diet: regular Diet Comment: regular caffeine: Yes during the past year weight has: remained stable Dental Care, Regularly: No Physical Activity Frequency: Daily Seatbelt Use: always Sunscreen Use: Yes Assistive Devices: Cane Physical Exam Physical Exam: General: chronically ill appearing female resting in bed, sister in law at bedside, NAD HEENT: nose w/ deviated septum, nasal turbinate boggy on the left, rhino rocket to the left, trace blood noted to material but no oozing/gushing, mm slightly dry posterior oropharynx w/ dried/clotted blood, improving w/ drink Resp: CTA, no w/c, on room air 97% CV: irregularly irregular (rates in 70-80s), +murmur, no pitting edema, varicosities to LE, pulses present GI: +BS, soft/NT MSK/Neuro: following commands, no facial droop/slurred speech Psych; AOx3 Results & Data Results & Data Vital Signs (Past 12 Hours) Vital Signs Temp Pulse Resp BP Pulse Ox O2 Del Method 11/16/22 13:01 71 11/16/22 11:29 64 18 105/65 97 Room Air 11/16/22 10:30 63 21 98 Room Air 11/16/22 10:15 66 19 104/46 L 94 Room Air 11/16/22 10:00 69 19 94 Room Air 11/16/22 09:36 82 21 95 Room Air 11/16/22 09:00 36.5 C 87 16 116/74 97 Room Air 11/16/22 09:06 69 Laboratory Results 11/16/22 11/16/22 11/16/22 Range/Units 13:16 09:15 09:10 WBC (4.8-10.8) K/ul RBC (4.20-5.40) M/uL Hgb (12.0-16.0) g/dl POC Hgb 11.6 L (12.0-16.0) g/dl Hct (37.0-47.0) % POC Hct 34 L (37-47) % MCV (80.0-100.0) fL MCH (25.0-34.0) pg MCHC (32.0-36.0) g/dL RDW Std Deviation (36.4-46.3) fL RDW Coeff of Alicia (11.5-14.5) % Plt Count (130-400) K/uL MPV (9.4-12.4) fL Immature Gran % (Auto) % Neut % (Auto) % Lymph % (Auto) % Hamblen % (Auto) % Eos % (Auto) % Baso % (Auto) % Neut # (Auto) (1.40-6.50) K/uL Lymph # (Auto) (1.2-3.4) K/uL Hamblen # (Auto) (0.11-0.59) K/uL Eos # (Auto) (0-0.50) K/uL Baso # (Auto) (0-0.2) K/uL Immature Gran # (Auto) (0.01-0.20) K/uL PT (9.0-12.0) Seconds POC INR 2.7 H (0.9-1.1) INR (0.9-1.1) POC Sodium 142 (135-144) mmol/L Sodium (136-145) mmol/L POC Potassium 4.7 (3.3-5.0) mmol/L Potassium (3.5-5.1) mmol/L POC Chloride 107 (101-112) mmol/L Chloride (98-107) mmol/L Carbon Dioxide (21-32) mmol/L POC Total CO2 25 (24-31) mmol/L Anion Gap (3-11) POC Anion Gap 16.0 (16-25) mmol/L POC BUN 23 H (7-18) mg/dl BUN (6-23) mg/dl Creatinine (0.6-1.2) mg/dl POC Creatinine 1.1 (0.6-1.3) mg/dl Est Cr Clr Drug Dosing ml/min Est GFR ( Amer) ml/min Est GFR (Non-Af Amer) ml/min BUN/Creatinine Ratio (10-20) Glucose (70-99(Fasting)) mg/dl POC Glucose (other) 131 H (70-99) mg/dl Calcium (8.6-10.3) mg/dl POC Ioniz Calcium Katelynn 1.24 (1.12-1.32) mmol/l Total Bilirubin (0.2-1.0) mg/dl AST (13-39) U/L ALT (7-52) U/L Alkaline Phosphatase (34-104) U/L Total Protein (6.0-8.3) gm/dl Albumin (3.4-5.0) gm/dl Globulin (2.5-4.0) gm/dl Albumin/Globulin Ratio (0.9-2) SARS-CoV-2, RNA, NAAT NEGATIVE (NEGATIVE) 11/16/22 11/16/22 11/16/22 Range/Units 09:08 09:08 09:08 WBC 10.34 (4.8-10.8) K/ul RBC 3.87 L (4.20-5.40) M/uL Hgb 11.7 L (12.0-16.0) g/dl POC Hgb (12.0-16.0) g/dl Hct 34.9 L (37.0-47.0) % POC Hct (37-47) % MCV 90.2 (80.0-100.0) fL MCH 30.2 (25.0-34.0) pg MCHC 33.5 (32.0-36.0) g/dL RDW Std Deviation 47.1 H (36.4-46.3) fL RDW Coeff of Alicia 14.3 (11.5-14.5) % Plt Count 198 (130-400) K/uL MPV 10.5 (9.4-12.4) fL Immature Gran % (Auto) 0.4 % Neut % (Auto) 49.1 % Lymph % (Auto) 33.3 % Hamblen % (Auto) 9.3 % Eos % (Auto) 7.3 % Baso % (Auto) 0.6 % Neut # (Auto) 5.09 (1.40-6.50) K/uL Lymph # (Auto) 3.44 H (1.2-3.4) K/uL Hamblen # (Auto) 0.96 H (0.11-0.59) K/uL Eos # (Auto) 0.75 H (0-0.50) K/uL Baso # (Auto) 0.06 (0-0.2) K/uL Immature Gran # (Auto) 0.04 (0.01-0.20) K/uL PT 26.6 H (9.0-12.0) Seconds POC INR (0.9-1.1) INR 2.6 H (0.9-1.1) POC Sodium (135-144) mmol/L Sodium 141 (136-145) mmol/L POC Potassium (3.3-5.0) mmol/L Potassium 4.5 (3.5-5.1) mmol/L POC Chloride (101-112) mmol/L Chloride 109 H (98-107) mmol/L Carbon Dioxide 27 (21-32) mmol/L POC Total CO2 (24-31) mmol/L Anion Gap 5 (3-11) POC Anion Gap (16-25) mmol/L POC BUN (7-18) mg/dl BUN 24 H (6-23) mg/dl Creatinine 1.09 (0.6-1.2) mg/dl POC Creatinine (0.6-1.3) mg/dl Est Cr Clr Drug Dosing 26.4 ml/min Est GFR ( Amer) 52.1 ml/min Est GFR (Non-Af Amer) 45.0 ml/min BUN/Creatinine Ratio 22.0 H (10-20) Glucose 131 H (70-99(Fasting)) mg/dl POC Glucose (other) (70-99) mg/dl Calcium 9.1 (8.6-10.3) mg/dl POC Ioniz Calcium Katelynn (1.12-1.32) mmol/l Total Bilirubin 0.5 (0.2-1.0) mg/dl AST 22 (13-39) U/L ALT 14 (7-52) U/L Alkaline Phosphatase 49 (34-104) U/L Total Protein 6.4 (6.0-8.3) gm/dl Albumin 3.6 (3.4-5.0) gm/dl Globulin 2.8 (2.5-4.0) gm/dl Albumin/Globulin Ratio 1.3 (0.9-2) SARS-CoV-2, RNA, NAAT (NEGATIVE) Supervising Physician Co-Signing Physician Notes I personally saw and examined the patient. I verified all white points and agree with Deidre Kelly PA-C with the following exceptions and/or additions: 87 year old female presents to the ER with a spontaneous nose bleed while on warfarin for Mechanical MITRAL valve ([facility]) 1988 and atrial fibrillation. No post nasal drip, Packing currently in place O/E A&Ox3, RRR, mechanical click, no murmur, Chest CTAB, Abdo SNT A/P Epistaxis - mostly stopped at this time therefore will continue on her usual warfarin dose and trend Hgb. If recurs after packing removed consider ENT consult and holding warfarin. PG Care Time/CCT Total # of Minutes Spent Total Time Spent with Patient: Total time spent is greater than 50% in coordination of care (as documented) at patient's floor/unit and/or counseling patient: Coding Level of Care Code 30587 INT INP/OBS CARE 2/55MIN Diagnoses Epistaxis R04.0 Permanent atrial fibrillation I48.2 History of mitral valve replacement Z95.2 Antiplatelet or antithrombotic long-term use Z79.02 Hypertension I10 Hypertension type: essential hypertension Hyperlipidemia E78.2 Hyperlipidemia type: mixed hyperlipidemia Sick sinus syndrome I49.5 Cardiomyopathy I42.0 Cardiomyopathy type: dilated (5) Hypertension Hypertension type: essential hypertension Qualified Code(s): I10 - Essential (primary) hypertension (6) Hyperlipidemia Hyperlipidemia type: mixed hyperlipidemia Qualified Code(s): E78.2 - Mixed hyperlipidemia (8) Cardiomyopathy Cardiomyopathy type: dilated Qualified Code(s): I42.0 - Dilated cardiomyopa thy
--- NOTE | 2022-11-16 14:40 | Emergency Department Note ---
Impression & Plan Epistaxis, Anticoagulant long-term use, Mechanical heart valve present ED Provider Note CHIEF COMPLAINT: Epistaxis, Coumadin HISTORY OF PRESENT ILLNESS: This 87-year-old female patient with past medical history of atrial fibrillation, aortic valve replacement, cardiomyopathy with pacemaker, hypertension, hyperlipidemia on Coumadin presents to the emergency department with epistaxis. The patient arrives by EMS. 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 Patient's last INR check was about 10 days ago. Patient denies any trauma. She thinks the blood is running down the back of her throat. She feels nauseated currently. REVIEW OF SYSTEMS: A review of systems was performed with positives and pertinent negatives listed in the history of present illness. 10 systems were reviewed and are otherwise negative. ALLERGIES: see below MEDICATIONS: see below PMH: see below SOCIAL HISTORY: see below DDx: Anterior epistaxis, coagulopathy, traumatic injury, fracture, septal hematoma, posterior epistaxis, infections, as well as other pathologies. PHYSICAL EXAM: Vital signs reviewed. General: Elderly, anxious 87-year-old female, no significant distress HEENT: No scleral icterus, PERRLA, neck supple. Moist mucous membranes, fresh b lood in the mouth, majority of bright red blood coming from the right nares. Clot in the posterior oropharynx Cardiovascular: Regular rate and rhythm, systolic ejection murmur Pulmonary: Clear to auscultation bilaterally, normal work of breathing. Abdomen: Soft, nontender, nondistended, positive bowel sounds. Musculoskeletal: Atraumatic, no peripheral edema. Neurologic: Patient awake alert and oriented x 3, speech is clear Skin: Warm, dry, no rash EMERGENCY DEPARTMENT COURSE/MDM: This patient was evaluated and appeared to be in some discomfort IV access was obtained and laboratory work was drawn. The patient was given Afrin nasal spray followed by hemoDerm in bilateral nares. Patient continued to have active bleeding and a Rhino Rocket was placed in the right nare. Patient was given TXA topically. INR is 2.7 with a stable hemoglobin of 11. Patient does have a [facility]. Cosme's valve and reversing the Coumadin is felt not to be an option. Patient was observed in the emergency department for several hours. Bleeding seem to have subsided. Packing remain in place and the patient was given Omnicef 300 mg orally. After discussing the situation with the patient and her [id number] at the bedside, the patient felt uncomfortable about being discharged because she is alone in a remote location. Case was discussed with Dr. Mena of the hospitalist service who will evaluate the patient for admission and further management. PROCEDURE:Anterior Nasal Packing Indication: Epistaxis Verbal consent obtained. A time out was taken. Clots were removed with suction. The right naris was prepped with Afrin and hemoderm. A large nasal Rhino Rocket was placed in a standard fashion. The patient tolerated this well. Hemostasis was achieved. No complications. MONITORING: An order for cardiac monitoring was placed and the patient is noted to be in a paced rhythm at 71 beats per minute. DISPOSITION: Admission I have personally spent 30 minutes of critical care time in the direct management of this patient. This was a life/limb threatening event. This 30 minutes is in excess of all separately billable procedures. Past Med/Surg History Medical History (Updated 11/16/22 @ 19:55 by Va Crane MD) Antiplatelet or antithrombotic long-term use Atypical chest pain Carpal tunnel syndrome Chest wall contusion Contusion of flank Cyst of eye Dupuytrens contracture History of actinic keratosis History of cough History of fatigue History of osteoporosis History of pacemaker Jaw pain Mitral valve stenosis Non-ST elevation myocardial infarction (NSTEMI) Rheumatic heart disease Tremor Surgical History (Updated 11/16/22 @ 19:55 by Va Crane MD) History of breast biopsy BENIGN LEFT BREAST BIOPSY History of History of cataract surgery History of cholecystectomy History of dilation and curettage History of mitral valve replacement #29 [facility] COSME PROSTHETIC MITRAL VALVE. 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 Other Information That Helps Us Care for You: No Feels Safe at Home: Yes Safety Concerns: Feels Safe At This Time Childhood Exposure to Second-Hand Smoke: No Diet: regular Diet Comment: regular caffeine: Yes during the past year weight has: remained stable Dental Care, Regularly: No Physical Activity Frequency: Daily Seatbelt Use: always Sunscreen Use: Yes Assistive Devices: Cane Allergies Allergies Allergy/AdvReac Type Severity Reaction Status Date / Time nitrofurantoin Allergy Mild CAN'T Verified 11/02/22 14:19 REMEMBER Penicillins Allergy Mild CAN'T Verified 11/02/22 14:19 REMEMBER albuterol [From Ventolin HFA] Allergy Unknown Unknown Verified 11/02/22 14:19 amoxicillin Allergy Unknown Unknown Verified 11/02/22 14:19 atorvastatin [From Lipitor] Allergy Unknown Unknown Verified 11/02/22 14:19 hydrocodone Allergy Unknown CAN'T Verified 11/02/22 14:19 REMEMBER doxycycline AdvReac Intermediate nausea and Verified 11/02/22 14:19 vomiting Home Meds Home Medications Medication Instructions Recorded Confirmed aspirin 81 mg tablet,delayed 81 mg PO QAM 03/31/18 11/16/22 release (Adult Low Dose Aspirin) calcium carb-vit D3-minerals 600 1 tab PO DAILY 03/31/18 11/16/22 mg calcium-400 unit tablet multivitamin 1 tab PO DAILY 03/05/20 11/16/22 clobetasol 0.05 % topical ointment 1 applic topical .COMPLEX PRN 11/16/22 11/16/22 Unknown Previous Rx's Medication Instructions Recorded clindamycin HCl 300 mg capsule 300 mg PO .COMPLEX 0 days #10 caps 08/11/21 lisinopril 20 mg tablet 20 mg PO DAILY #90 tabs 05/07/22 metoprolol succinate 50 mg 50 mg PO DAILY #90 tabs 05/07/22 tablet,extended release 24 hr omeprazole 40 mg capsule,delayed 40 mg PO QAM #90 caps 06/01/22 release rosuvastatin 20 mg tablet (Crestor) 20 mg PO DAILY #90 tabs 10/01/22 warfarin 3 mg tablet See Rx Instructions PO UD #90 tabs 11/16/22 Results & Data (ED) Vital Signs Vital Signs - 24 hr 11/16/22 09:06 11/16/22 09:00 11/16/22 09:36 Temperature 36.5 C Temperature Source Oral Pulse Rate 69 87 82 Pulse Rate from SpO2 Sensor Respiratory Rate 16 21 Respiratory Effort / Characteristics Non-Labored Spontaneous Respiratory Depth Normal Blood Pressure 116/74 Blood Pressure Mean 88 Pulse Oximetry 97 95 Oxygen Delivery Method Room Air Room Air Sepsis New/Unexplained Change in Mental Status N/A Sepsis Action Taken by Nursing No Action Required 11/16/22 10:00 11/16/22 10:15 11/16/22 10:30 Temperature Temperature Source Pulse Rate 69 66 63 Pulse Rate from SpO2 Sensor 64 Respiratory Rate 19 19 21 Respiratory Effort / Characteristics Respiratory Depth Blood Pressure 104/46 L Blood Pressure Mean 65 Pulse Oximetry 94 94 98 Oxygen Delivery Method Room Air Room Air Room Air Sepsis New/Unexplained Change in Mental Status Sepsis Action Taken by Nursing 11/16/22 11:29 11/16/22 13:01 11/16/22 13:27 Temperature Temperature Source Pulse Rate 64 71 79 Pulse Rate from SpO2 Sensor 76 Respiratory Rate 18 23 Respiratory Effort / Characteristics Respiratory Depth Blood Pressure 105/65 110/59 L Blood Pressure Mean 78 76 Pulse Oximetry 97 97 Oxygen Delivery Method Room Air Room Air Sepsis New/Unexplained Change in Mental Status Sepsis Action Taken by Nursing 11/16/22 14:10 11/16/22 14:30 Temperature Temperature Source Pulse Rate 71 62 Pulse Rate from SpO2 Sensor 72 68 Respiratory Rate 23 18 Respiratory Effort / Characteristics Respiratory Depth Blood Pressure Blood Pressure Mean Pulse Oximetry 100 94 Oxygen Delivery Method Sepsis New/Unexplained Change in Mental Status Sepsis Action Taken by Care Home Medications Current Medication List: was personally reviewed by me Laboratory Data Attestation: I reviewed the patient's lab results. 11/16/22 09:08 11/16/22 09:08 Lab Results 11/16/22 11/16/22 11/16/22 Range/Units 09:08 09:08 09:08 WBC 10.34 (4.8-10.8) K/ul RBC 3.87 L (4.20-5.40) M/uL Hgb 11.7 L (12.0-16.0) g/dl POC Hgb (12.0-16.0) g/dl Hct 34.9 L (37.0-47.0) % POC Hct (37-47) % MCV 90.2 (80.0-100.0) fL MCH 30.2 (25.0-34.0) pg MCHC 33.5 (32.0-36.0) g/dL RDW Std Deviation 47.1 H (36.4-46.3) fL RDW Coeff of Alicia 14.3 (11.5-14.5) % Plt Count 198 (130-400) K/uL MPV 10.5 (9.4-12.4) fL Immature Gran % (Auto) 0.4 % Neut % (Auto) 49.1 % Lymph % (Auto) 33.3 % Mcminn % (Auto) 9.3 % Eos % (Auto) 7.3 % Baso % (Auto) 0.6 % Neut # (Auto) 5.09 (1.40-6.50) K/uL Lymph # (Auto) 3.44 H (1.2-3.4) K/uL Mcminn # (Auto) 0.96 H (0.11-0.59) K/uL Eos # (Auto) 0.75 H (0-0.50) K/uL Baso # (Auto) 0.06 (0-0.2) K/uL Immature Gran # (Auto) 0.04 (0.01-0.20) K/uL PT 26.6 H (9.0-12.0) Seconds POC INR (0.9-1.1) INR 2.6 H (0.9-1.1) POC Sodium (135-144) mmol/L Sodium 141 (136-145) mmol/L POC Potassium (3.3-5.0) mmol/L Potassium 4.5 (3.5-5.1) mmol/L POC Chloride (101-112) mmol/L Chloride 109 H (98-107) mmol/L Carbon Dioxide 27 (21-32) mmol/L POC Total CO2 (24-31) mmol/L Anion Gap 5 (3-11) POC Anion Gap (16-25) mmol/L POC BUN (7-18) mg/dl BUN 24 H (6-23) mg/dl Creatinine 1.09 (0.6-1.2) mg/dl POC Creatinine (0.6-1.3) mg/dl Est Cr Clr Drug Dosing 26.4 ml/min Est GFR ( Amer) 52.1 ml/min Est GFR (Non-Af Amer) 45.0 ml/min BUN/Creatinine Ratio 22.0 H (10-20) Glucose 131 H (70-99(Fasting)) mg/dl POC Glucose (other) (70-99) mg/dl Calcium 9.1 (8.6-10.3) mg/dl POC Ioniz Calcium Katelynn (1.12-1.32) mmol/l Total Bilirubin 0.5 (0.2-1.0) mg/dl AST 22 (13-39) U/L ALT 14 (7-52) U/L Alkaline Phosphatase 49 (34-104) U/L Total Protein 6.4 (6.0-8.3) gm/dl Albumin 3.6 (3.4-5.0) gm/dl Globulin 2.8 (2.5-4.0) gm/dl Albumin/Globulin Ratio 1.3 (0.9-2) SARS-CoV-2, RNA, NAAT (NEGATIVE) 11/16/22 11/16/22 11/16/22 Range/Units 09:10 09:15 13:16 WBC (4.8-10.8) K/ul RBC (4.20-5.40) M/uL Hgb (12.0-16.0) g/dl POC Hgb 11.6 L (12.0-16.0) g/dl Hct (37.0-47.0) % POC Hct 34 L (37-47) % MCV (80.0-100.0) fL MCH (25.0-34.0) pg MCHC (32.0-36.0) g/dL RDW Std Deviation (36.4-46.3) fL RDW Coeff of Alicia (11.5-14.5) % Plt Count (130-400) K/uL MPV (9.4-12.4) fL Immature Gran % (Auto) % Neut % (Auto) % Lymph % (Auto) % Mcminn % (Auto) % Eos % (Auto) % Baso % (Auto) % Neut # (Auto) (1.40-6.50) K/uL Lymph # (Auto) (1.2-3.4) K/uL Mcminn # (Auto) (0.11-0.59) K/uL Eos # (Auto) (0-0.50) K/uL Baso # (Auto) (0-0.2) K/uL Immature Gran # (Auto) (0.01-0.20) K/uL PT (9.0-12.0) Seconds POC INR 2.7 H (0.9-1.1) INR (0.9-1.1) POC Sodium 142 (135-144) mmol/L Sodium (136-145) mmol/L POC Potassium 4.7 (3.3-5.0) mmol/L Potassium (3.5-5.1) mmol/L POC Chloride 107 (101-112) mmol/L Chloride (98-107) mmol/L Carbon Dioxide (21-32) mmol/L POC Total CO2 25 (24-31) mmol/L Anion Gap (3-11) POC Anion Gap 16.0 (16-25) mmol/L POC BUN 23 H (7-18) mg/dl BUN (6-23) mg/dl Creatinine (0.6-1.2) mg/dl POC Creatinine 1.1 (0.6-1.3) mg/dl Est Cr Clr Drug Dosing ml/min Est GFR ( Amer) ml/min Est GFR (Non-Af Amer) ml/min BUN/Creatinine Ratio (10-20) Glucose (70-99(Fasting)) mg/dl POC Glucose (other) 131 H (70-99) mg/dl Calcium (8.6-10.3) mg/dl POC Ioniz Calcium Katelynn 1.24 (1.12-1.32) mmol/l Total Bilirubin (0.2-1.0) mg/dl AST (13-39) U/L ALT (7-52) U/L Alkaline Phosphatase (34-104) U/L Total Protein (6.0-8.3) gm/dl Albumin (3.4-5.0) gm/dl Globulin (2.5-4.0) gm/dl Albumin/Globulin Ratio (0.9-2) SARS-CoV-2, RNA, NAAT NEGATIVE (NEGATIVE) Administered Medications Acetaminophen (Acetaminophen 325 Mg Tab) 650 mg PO Q4H PRN PRN Reason: Pain or fever Stop: 12/16/22 16:23 Last Admin: 11/16/22 16:53 Dose: 650 mg Documented By: ANYA Warfarin Sodium (Warfarin Sod 3 Mg Tab) 3 mg PO DAILY@1600 DAVID Stop: 12/16/22 15:59 Last Admin: 11/16/22 16:53 Dose: 3 mg Documented By: ANYA Discontinued Medications Cefdinir (Cefdinir 300 Mg Cap) 300 mg PO ONE STA Stop: 11/16/22 13:20 Last Admin: 11/16/22 13:26 Dose: 300 mg Documented By: ROSALIO Miscellaneous (Hemaderm Ent Applicator Kit) 1 each TOP ONCE ONE Stop: 11/16/22 09:24 Last Admin: 11/16/22 09:25 Dose: 1 each Documented By: TRAN Ondansetron HCl (Ondansetron Inj 2 Mg/Ml 2 Ml Vial) Confirm Administered Dose 4 mg .ROUTE .STK-MED ONE Stop: 11/16/22 09:07 Last Admin: 11/16/22 09:15 Dose: 4 mg Documented By: PETRA Ondansetron HCl (Ondansetron Inj 2 Mg/Ml 2 Ml Vial) 4 mg IV NOW STA Stop: 11/16/22 09:46 Last Admin: 11/16/22 09:51 Dose: 4 mg Documented By: PETRA Ondansetron HCl (Ondansetron Inj 2 Mg/Ml 2 Ml Vial) 4 mg IV NOW STA Stop: 11/16/22 09:59 Last Admin: 11/16/22 10:09 Dose: Not Given Documented By: PETRA Oxymetazoline HCl (Oxymetazoline 0.05% 30 Ml Btl) Confirm Administered Dose 150 sprays .ROUTE .STK-MED ONE Stop: 11/16/22 09:01 Last Admin: 11/16/22 09:10 Dose: 150 sprays Documented By: TRAN Pantoprazole Sodium (Pantoprazole 40 Mg Tab) 40 mg PO NOW STA Stop: 11/16/22 15:56 Last Admin: 11/16/22 16:53 Dose: 40 mg Documented By: ANYA Tranexamic Acid (Txa 10% Non-Iv Routes 100 Mg/Ml Vial) 100 mg NA ONE ONE Stop: 11/16/22 10:16 Last Admin: 11/16/22 10:10 Dose: 100 mg Documented By: PETRA Discharge Plan Visit Data Chief Complaint: Nose Bleed (Minor) ED Provider: Va Crane Discharge Problem: Epistaxis, Anticoagulant long-term use, Mechanical heart valve present Patient Disposition: Admitted As Inpatient Discharge Instructions Interventions: ED Discharge Assessment Last Done: 11/16/22 15:58
[2022-11-16] MEDS ORDERED: ONDANSETRON INJ 2 MG/ML 2 ML VIAL IV PRN (15:51)
[2022-11-16] MEDS ORDERED: OXYMETAZOLINE 0.05% 30 ML BTL NAE PRN (15:51)
[2022-11-16] MEDS ORDERED: PANTOprazole 40 MG TAB PO STA (15:55)
[2022-11-16] MEDS ORDERED: ACETAMINOPHEN 325 MG TAB PO PRN (16:24)
[2022-11-16] MEDS: WARFARIN SOD 3 MG TAB PO SCH (16:53)
[2022-11-17] MEDS: PANTOprazole 40 MG TAB PO SCH (08:17)
[2022-11-17] MEDS: ROSUVASTATIN CALCIUM 20 MG TAB PO SCH (08:17)
[2022-11-17 08:32] LABS: Hematocrit (blood only) 28.4 % (37.0-47.0); Hemoglobin 9.6 g/dl (12.0-16.0); Mean Corpuscular Hemoglobin 30.1 pg (25.0-34.0); Mean Corpuscular Hgb Conc 33.8 g/dL (32.0-36.0); Mean Platelet Volume 10.7 fL (9.4-12.4); Platelet Count 177 K/uL (130-400); RDW Coefficient of Variation 14.4 % (11.5-14.5); RDW Standard Deviation 46.5 fL (36.4-46.3); Red Blood Count 3.19 M/uL (4.20-5.40); White Blood Count 11.45 K/ul (4.8-10.8)
[2022-11-17] MEDS ORDERED: IRON SUCROSE 200 MG in 0.9 % SODIUM CHLORIDE 100 ML IV ONE (08:38)
[2022-11-17 08:46] LABS: BUN Creatinine Ratio 38.9 (10-20); Calcium 8.5 mg/dl (8.6-10.3); Est GFR (African American) 65.7 ml/min; Est GFR (Non-African American) 56.7 ml/min; Magnesium 1.8 mg/dl (1.7-2.4)
[2022-11-17 08:54] LABS: INR 3.2 (0.9-1.1); Prothrombin Time 32.6 Seconds (9.0-12.0)
[2022-11-17] MEDS: METOPROLOL SUCC 50MG EXT REL TAB PO SCH (09:21)
[2022-11-17 13:01] LABS: Appearance Urine Clear (Clear); Bacteria Urine Automated Negative (Negative); Bilirubin Urine Negative (Negative); Blood Urine Trace (Negative); Cast Urine Automated 0 /lpf (0-5); Color Urine Yellow; Glucose Urine UA Negative (Negative); Ketones Urine Negative (Negative); Leukocyte Esterase Urine 2+ (Negative); Nitrite Urine Negative (Negative); Protein Urine Negative (Negative); RBC Urine Automated 0-4 /hpf (0-4); Specific Gravity Urine 1.016 (1.000-1.030); Urobilinogen Urine Negative (Negative); pH Urine 6.5 (4.5-7.5)
[2022-11-17 15:17] LABS: Hematocrit (blood only) 27.8 % (37.0-47.0); Hemoglobin 9.5 g/dl (12.0-16.0)
--- NOTE | 2022-11-17 15:21 | Hospitalist Progress Note ---
Date of Service November 17, 2022 Assessment & Plan (1) Epistaxis: Plan: right nare copious bleeding this was in the setting of daily aspirin use and coumadin use with INR goal 2.5 to 3.5 s/p rhino rocket placement in the ER no significant bleeding since I spoke with Dr Franco from ENT on-call - he will see patient 1-2 days post- discharge in ENT clinic rhino rocket to be removed then and evaluation performed keep off of aspirin need to continue the coumadin in light of prosthetic, mechanical valve (2) Acute blood loss anemia: Plan: 2nd to #1 provide IV venofer today then again tomorrow Fe studies, B12, and folate to be checked (3) Permanent atrial fibrillation: Plan: cont coumadin cont metoprolol has pacer (4) History of mitral valve replacement: Plan: coumadin, INR goal 2.5-3.5 INR today 3.2 no changes in coumadin regimen (5) Antiplatelet or antithrombotic long-term use: Plan: coumadin for #4 above (6) Hypertension: Plan: continue metoprolol continue to hold lisinopril -- BPs controlled without it likely to not need it at d/c due to #2 above (7) Hyperlipidemia: Plan: continue statin (8) Sick sinus syndrome: Plan: s/p permanent pacemaker placement in the past follows with Dr Meza (9) Cardiomyopathy: Plan: EF 40-45% on 2020 echo I cannot find an echo since then On exam appears compensated Would not hydrate with any further IV fluids Plan chronic poor appetite - etiology? will need f/u with PCP for such check a u/a and urine cx to r/o UTI melena stool - likely swallowed blood from the nosebleed repeat H/H this afternoon stable in the mid I updated the pt's sister in law at bedside this afternoon hopeful for d/c home tomorrow if passes PT/OT evals Admission and Anticipated Discharge Date Admission Date: November 16, 2022 Subjective patient states she has had just a few drops of blood via right nare since the rhino rocket was placed in the ER no bleeding in the left nostril has never had prior nosebleeds she is not eating robustly here - states it is the same way at home denies nausea or emesis denies abd pain later in the day apparently had had a melena stool [facility] has a sister in law that lives near [place] she will likely be able to bring her to ENT f/u post-discharge awaiting PT/OT evals Review of Systems Review of Systems: cv - no chest pain pulm - no dyspnea GI - no abd pain, n/V - denies any urinary complaints Physical Exam Physical Exam: gen - thin, NAD, pleasant nose - rhino rocket present R nare; no active bleeding; left nare without bl eeding mouth - MMM neck - no JVD heart - RRR, s1 s2 lungs - CTA b/l abd - soft NT ND BS+ ext - no edema, pulses 2+ b/l Results & Data Results & Data Vital Signs (Past 12 Hours) Vital Signs Temp Pulse Resp BP Pulse Ox O2 Del Method 11/17/22 15:17 37.0 C 63 16 107/61 94 Room Air 11/17/22 09:50 36.4 C L 82 16 112/71 99 Room Air 11/17/22 08:11 36.8 C 83 16 117/60 96 Room Air Laboratory Results Laboratory Results - last 24 hr 11/17/22 11/17/22 11/17/22 07:38 07:38 07:38 WBC 11.45 H RBC 3.19 L Hgb 9.6 L Hct 28.4 L MCV 89.0 MCH 30.1 MCHC 33.8 RDW Std Deviation 46.5 H RDW Coeff of Alicia 14.4 Plt Count 177 MPV 10.7 PT 32.6 H INR 3.2 H Sodium 140 Potassium 4.0 Chloride 108 H Carbon Dioxide 26 Anion Gap 6 BUN 35 H Creatinine 0.90 Est Cr Clr Drug Dosing 32.0 Est GFR ( Amer) 65.7 Est GFR (Non-Af Amer) 56.7 BUN/Creatinine Ratio 38.9 H Glucose 88 Calcium 8.5 L Magnesium 1.8 Iron TIBC Unsaturated IBC Transferrin % Sat Ferritin Vitamin B12 Folate Urine Color Urine Appearance Urine pH Ur Specific [place] Urine Protein Urine Glucose (UA) Urine Ketones Urine Blood Urine Nitrite Urine Bilirubin Urine Urobilinogen Ur Leukocyte Esterase Urine WBC (Auto) Urine RBC (Auto) U Hyaline Cast (Auto) U Epithel Cells (Auto) Urine Bacteria (Auto) 11/17/22 11/17/22 11/17/22 12:36 14:38 14:38 WBC RBC Hgb 9.5 L Hct 27.8 L MCV MCH MCHC RDW Std Deviation RDW Coeff of Alicia Plt Count MPV PT INR Sodium Potassium Chloride Carbon Dioxide Anion Gap BUN Creatinine Est Cr Clr Drug Dosing Est GFR ( Amer) Est GFR (Non-Af Amer) BUN/Creatinine Ratio Glucose Calcium Magnesium Iron Pending TIBC Pending Unsaturated IBC Pending Transferrin % Sat Pending Ferritin Pending Vitamin B12 Folate Urine Color Yellow Urine Appearance Clear Urine pH 6.5 Ur Specific [place] 1.016 Urine Protein Negative Urine Glucose (UA) Negative Urine Ketones Negative Urine Blood Trace H Urine Nitrite Negative Urine Bilirubin Negative Urine Urobilinogen Negative Ur Leukocyte Esterase 2+ H Urine WBC (Auto) 10-30 H Urine RBC (Auto) 0-4 U Hyaline Cast (Auto) 0 U Epithel Cells (Auto) 5-10 H Urine Bacteria (Auto) Negative 11/17/22 14:38 WBC RBC Hgb Hct MCV MCH MCHC RDW Std Deviation RDW Coeff of Alicia Plt Count MPV PT INR Sodium Potassium Chloride Carbon Dioxide Anion Gap BUN Creatinine Est Cr Clr Drug Dosing Est GFR ( Amer) Est GFR (Non-Af Amer) BUN/Creatinine Ratio Glucose Calcium Magnesium Iron TIBC Unsaturated IBC Transferrin % Sat Ferritin Vitamin B12 Pending Folate Pending Urine Color Urine Appearance Urine pH Ur Specific [place] Urine Protein Urine Glucose (UA) Urine Ketones Urine Blood Urine Nitrite Urine Bilirubin Urine Urobilinogen Ur Leukocyte Esterase Urine WBC (Auto) Urine RBC (Auto) U Hyaline Cast (Auto) U Epithel Cells (Auto) Urine Bacteria (Auto) PG Care Time/CCT Total # of Minutes Spent Total Time Spent with Patient: Total time spent is greater than 50% in coordination of care (as documented) at patient's floor/unit and/or counseling patient: Coding Level of Care Code 10190 SUB INP/OBS CARE 3/50MIN Diagnoses Epistaxis R04.0 Acute blood loss anemia D62 Permanent atrial fibrillation I48.2 History of mitral valve replacement Z95.2 Antiplatelet or antithrombotic long-term use Z79.02 Hypertension I10 Hypertension type: essential hypertension Hyperlipidemia E78.2 Hyperlipidemia type: mixed hyperlipidemia Sick sinus syndrome I49.5 Cardiomyopathy I42.0 Cardiomyopathy type: dilated (6) Hypertension Hypertension type: essential hypertension Qualified Code(s): I10 - Essential (primary) hypertension (7) Hyperlipidemia Hyperlipidemia type: mixed hyperlipidemia Qualified Code(s): E78.2 - Mixed hyperlipidemia (9) Cardiomyopathy Cardiomyopathy type: dilated Qualified Code(s): I42.0 - Dilated cardiomyopathy
[2022-11-17 15:30] LABS: Iron 388 mcg/dl (35-150); Unsaturated Iron Binding Cap < 55 mcg/dl (155-355)
[2022-11-17 15:41] LABS: Ferritin 64.1 ng/ml (8-388)
[2022-11-17 15:48] LABS: Vitamin B12 332 pg/ml (180-914)
[2022-11-17] MEDS: WARFARIN SOD 3 MG TAB PO SCH (17:10)
[2022-11-17] MEDS: MELATONIN 3 MG TAB PO SCH (20:52)
[2022-11-18 07:30] LABS: Hemoglobin 9.3 g/dl (12.0-16.0); Mean Corpuscular Hemoglobin 30.3 pg (25.0-34.0); Mean Corpuscular Hgb Conc 34.4 g/dL (32.0-36.0); Mean Corpuscular Volume 87.9 fL (80.0-100.0); Mean Platelet Volume 10.4 fL (9.4-12.4); Platelet Count 166 K/uL (130-400); RDW Coefficient of Variation 14.6 % (11.5-14.5); RDW Standard Deviation 46.9 fL (36.4-46.3); Red Blood Count 3.07 M/uL (4.20-5.40); White Blood Count 10.68 K/ul (4.8-10.8)
[2022-11-18 07:47] LABS: BUN Creatinine Ratio 29.3 (10-20); Calcium 8.7 mg/dl (8.6-10.3); Creatinine Clr Calc Pharmacy 31.3 ml/min; Est GFR (Non-African American) 55.2 ml/min; Potassium 4.3 mmol/L (3.5-5.1)
[2022-11-18 08:07] LABS: INR 2.8 (0.9-1.1); Prothrombin Time 28.7 Seconds (9.0-12.0)
[2022-11-18] MEDS: PANTOprazole 40 MG TAB PO SCH (08:18)
[2022-11-18] MEDS: METOPROLOL SUCC 50MG EXT REL TAB PO SCH (08:19)
[2022-11-18] MEDS: ROSUVASTATIN CALCIUM 20 MG TAB PO SCH (08:19)
[2022-11-18] MEDS ORDERED: IRON SUCROSE 200 MG in 0.9 % SODIUM CHLORIDE 100 ML IV ONE (08:38)
--- NOTE | 2022-11-18 15:16 | XRay Report ---
XR chest 2V PA/lateral CLINICAL HISTORY: hypoxia, b/l rales TECHNIQUE: 2 views of the chest were obtained. Comparison: Comparison is made to chest radiograph 04/01/2019 FINDINGS: Median sternotomy wires are unchanged. Dual-lead pacemaker is seen. Cardiomegaly is noted. The aortic arch is calcified. The lungs are clear. No evidence of pleural effusion or pneumothorax. IMPRESSION: No acute chest disease. ACT 112: Negative or not required by law. Electronically signed by: Jeff Ji M.D. 11/18/2022 3:15 PM
[2022-11-18] MEDS: WARFARIN SOD 3 MG TAB PO SCH (15:48)
--- NOTE | 2022-11-18 20:13 | Hospitalist Progress Note ---
Date of Service November 18, 2022 Assessment & Plan (1) Epistaxis: Plan: right nare copious bleeding this was in the setting of daily aspirin use and coumadin use with INR goal 2.5 to 3.5 s/p rhino rocket placement in the ER no significant bleeding since H/H did drop significantly upon admisison due to the epistaxis but since then stable I spoke with Dr Palomo from ENT on-call - he will see patient 1-2 days post- discharge in ENT clinic rhino rocket to be removed then and evaluation performed keep off of aspirin need to continue the coumadin in light of prosthetic, mechanical valve (2) Acute blood loss anemia: Plan: 2nd to #1 provide IV venofer again today - 200mg x 1 b12/folate wnl H/h in am for stability will give 3rd dose tomorrow (3) Permanent atrial fibrillation: Plan: cont coumadin cont metoprolol has pacer was due for interrogation in [facility] this week - will get such tomorrow (4) History of mitral valve replacement: Plan: coumadin, INR goal 2.5-3.5 INR today 2.8 no changes in coumadin regimen daily INR while here (5) Antiplatelet or antithrombotic long-term use: Plan: coumadin for #4 above (6) Hypertension: Plan: continue metoprolol continue to hold lisinopril -- BPs controlled without it likely to not need it at d/c due to #2 above (7) Hyperlipidemia: Plan: continue statin (8) Sick sinus syndrome: Plan: s/p permanent pacemaker placement in the past follows with Dr Meza pacer interrogation to be ordered (9) Cardiomyopathy: Plan: EF 40-45% on 2020 echo I cannot find an echo since then On exam appears compensated CXR today - compensated, no obvious pulm edema She has JVD on exam, however -- pulmonary HTN? (had mod pulm HTN in 2020) Will obtain echo and go from there (10) Hypoxia: Plan: patient with marked hypoxia during a walk today but did not have symptoms will obtain echo - check PA pressures if pulm HTN is worse the hypoxia could be due to such cxr today wnl await echo will need formal 2-step before discharge but will be tricky if she needs O2 due to recent nosebleed (11) Chronic renal failure (CRF), stage 3b: Plan: baseline CrCl low 30s BMP am for stability Plan due to the hypoxia no discharge today await echo updated pt's granddaughterJessica - [phone] - this evening by phone she asked if we could consider asking ENT to manage the rhino rocket in house due to concerns about transportation to clinic, etc will inquire with ENT in am [id number] Jyoti updated at bedside 2x's today Admission and Anticipated Discharge Date Admission Date: November 18, 2022 Subjective patient w/o any new issues overnight eating fair just a few slight drops of blood from the R nare at times she is able to breath comfortably through the left nare denies dyspnea at rest staff walked her in the hallway today - sats briefly dropped to the upper 70s, but she walked comfortably per staff, and denied ANY shortness of breath to staff she does not have dyspnea at home w/ activity denies any exertional chest pain sister in law at bedside today - she confirms she can transport Ms Parrish too/from appointments no BM yet since admission did sleep decently last pm with melatonin Review of Systems Review of Systems: gen - appetite at baseline cv - no orthopnea, no edema, no PND pulm - denies ANY pulmonary symptoms GI - no pain despite constipation; no N/V Physical Exam Physical Exam: gen - thin, NAD, pleasant nose - rhino rocket present R nare; no active bleeding; left nare without bleeding mouth - MMM neck - JVD present at 45 degrees heart - RRR, s1 s2, 2/6 systolic murmur LSB; mechanical valve closure sound lungs - mild rales b/l bases, CTA apices otherwise abd - soft NT ND BS+ ext - no edema, pulses 2+ b/l Results & Data Results & Data Vital Signs (Past 12 Hours) Vital Signs Temp Pulse Resp BP Pulse Ox O2 Del Method 11/18/22 15:19 36.6 C 65 16 121/66 95 Room Air 11/18/22 08:21 83 126/73 97 Room Air Laboratory Results Laboratory Results - last 24 hr 11/18/22 11/18/22 11/18/22 07:15 07:15 07:15 WBC 10.68 RBC 3.07 L Hgb 9.3 L Hct 27.0 L MCV 87.9 MCH 30.3 MCHC 34.4 RDW Std Deviation 46.9 H RDW Coeff of Alicia 14.6 H Plt Count 166 MPV 10.4 PT 28.7 H INR 2.8 H Sodium 138 Potassium 4.3 Chloride 106 Carbon Dioxide 27 Anion Gap 5 BUN 27 H Creatinine 0.92 Est Cr Clr Drug Dosing 31.3 Est GFR ( Amer) 64.0 Est GFR (Non-Af Amer) 55.2 BUN/Creatinine Ratio 29.3 H Glucose 108 H Calcium 8.7 Diagnostic Findings Chest X-Ray 11/18/22 13:35 XR chest 2V PA/lateral CLINICAL HISTORY: hypoxia, b/l rales TECHNIQUE: 2 views of the chest were obtained. Comparison: Comparison is made to chest radiograph 04/01/2019 FINDINGS: Median sternotomy wires are unchanged. Dual-lead pacemaker is seen. Cardiomegaly is noted. The aortic arch is calcified. The lungs are clear. No evidence of pleural effusion or pneumothorax. IMPRESSION: No acute chest disease. ACT 112: Negative or not required by law. Electronically signed by: Jeff Ji M.D. 11/18/2022 3:15 PM PG Care Time/CCT Total # of Minutes Spent Total Time Spent with Patient: Total time spent is greater than 50% in coordination of care (as documented) at patient's floor/unit and/or counseling patient: Coding Level of Care Code 71710 SUB INP/OBS CARE 3/50MIN Diagnoses Epistaxis R04.0 Acute blood loss anemia D62 Permanent atrial fibrillation I48.2 History of mitral valve replacement Z95.2 Antiplatelet or antithrombotic long-term use Z79.02 Hypertension I10 Hypertension type: essential hypertension Hyperlipidemia E78.2 Hyperlipidemia type: mixed hyperlipidemia Sick sinus syndrome I49.5 Cardiomyopathy I42.0 Cardiomyopathy type: dilated Hypoxia R09.02 Chronic renal failure (CRF), stage 3b N18.32 (6) Hypertension Hypertension type: essential hypertension Qualified Code(s): I10 - Essential (primary) hypertension (7) Hyperlipidemia Hyperlipidemia type: mixed hyperlipidemia Qualified Code(s): E78.2 - Mixed hyperlipidemia (9) Cardiomyopathy Cardiomyopathy type: dilated Qualified Code(s): I42.0 - Dilated cardiomyopathy
[2022-11-18] MEDS: MELATONIN 3 MG TAB PO SCH (20:55)
[2022-11-19 07:47] LABS: Hematocrit (blood only) 26.4 % (37.0-47.0); Hemoglobin 8.9 g/dl (12.0-16.0); Mean Corpuscular Hemoglobin 30.4 pg (25.0-34.0); Mean Corpuscular Hgb Conc 33.7 g/dL (32.0-36.0); Mean Corpuscular Volume 90.1 fL (80.0-100.0); Mean Platelet Volume 11.1 fL (9.4-12.4); Nucleated RBC # (auto) 0.02 K/uL (0-0.12); Nucleated RBC % (auto) 0.2 %; Platelet Count 170 K/uL (130-400); RDW Coefficient of Variation 14.6 % (11.5-14.5); RDW Standard Deviation 47.1 fL (36.4-46.3); Red Blood Count 2.93 M/uL (4.20-5.40); White Blood Count 9.25 K/ul (4.8-10.8)
[2022-11-19 07:56] LABS: INR 2.7 (0.9-1.1); Prothrombin Time 28.2 Seconds (9.0-12.0)
[2022-11-19] MEDS ORDERED: IRON SUCROSE 200 MG in 0.9 % SODIUM CHLORIDE 100 ML IV ONE (08:00)
[2022-11-19] MEDS: PANTOprazole 40 MG TAB PO SCH (08:07)
[2022-11-19] MEDS: ROSUVASTATIN CALCIUM 20 MG TAB PO SCH (08:07)
[2022-11-19] MEDS: METOPROLOL SUCC 50MG EXT REL TAB PO SCH (08:08)
[2022-11-19 08:09] LABS: Calcium 8.9 mg/dl (8.6-10.3); Potassium 4.4 mmol/L (3.5-5.1)
[2022-11-19 08:15] LABS: BUN Creatinine Ratio 24.2 (10-20); Creatinine Clr Calc Pharmacy 29.1 ml/min; Est GFR (African American) 58.6 ml/min; Est GFR (Non-African American) 50.5 ml/min
[2022-11-19] MEDS ORDERED: POLYETHYLENE (MIRALAX) 17 GM PACK PO SCH (09:00)
[2022-11-19] MEDS ORDERED: SENNA 8.6 MG TAB PO SCH (09:00)
--- NOTE | 2022-11-19 09:17 | XCELERA ---
[id number] \\[id number]
--- NOTE | 2022-11-19 11:30 | Discharge Summary ---
Date of Service November 19, 2022 Admission HPI Per Admitting Provider 87yo female lives alone, PMHx significant for mitral valve replacement in 1988 at [facility] (follows coag clinic/Dr Meza), on coumadin She also has pacemaker for hx SSS, cardiomyopathy, permanent atrial fibrillation, HTN, HLD, CKD III. Apparently the noose bleed from her right nose started around 0700 and EMS at 0800 with uncontrolled bleeding. Afrin provided by ER provider, TXA Given elderly age/lives alone, monitoring overnight to ensure no further bleeding discussed with patient however she was interested in going home to clean up the blood at home and given bleeding was unable to be stopped until she came to the ER, good idea to monitor for any repeat issues. She does use nasal saline on occasion but no flonase or similar, she does have history of fractured nose/deviated septum and seen Brandie ENT in the past at [facility]. No active bleeding at present w/ nasal plug in place She notes she had been nauseated/vomiting but nothing since bleeding stopped. She takes coumadin 3mg daily as well as boost supplementation/ensure to help with protein. Goal INR 2.5-3.5 for her mitral valve replacement. Sister in law at bedside She feels more comfortable monitoring overnight and d/c w/ ENT follow up. Transportation may been an issue as lives in [place] and travel to [place] then back to [facility] would need to be done by [facility]. Discussed could reach out by phone for discussion but would ideally like f/u in person. NO chest pain/shortness of breath. They are concerned she may wait for a bed in the ER like SELINA couple months ago. Discussed hopefully will be quicker this time. No fevers/chills. Does have some clot to the back of her throat present. To alert nursing of any CP/SOB/lightheaded/dizziness or worsening bleeding. Hgb dropped from prior, 2nd to epistaxis since 7am until stopped in ER. GIven cefdinir, zofran, afrin, TXA. Ca 9.1, inonized Ca 1.24. BUN/Cr slightly elevated above baseline 24/1.09. Has not had anything to eat at this time. Discharge Exam gen - thin, NAD, pleasant nose - rhino rocket present R nare; no active bleeding; left nare without bleeding mouth - MMM neck - JVD present at 45 degrees heart - RRR, s1 s2, 2/6 systolic murmur LSB; mechanical valve closure sound lungs - mild rales b/l bases, CTA apices otherwise abd - soft NT ND BS+ ext - no edema, pulses 2+ b/l Discharge Data Allergies Allergy/AdvReac Type Severity Reaction Status Date / Time nitrofurantoin Allergy Mild CAN'T Verified 11/02/22 14:19 REMEMBER Penicillins Allergy Mild CAN'T Verified 11/02/22 14:19 REMEMBER albuterol [From Ventolin HFA] Allergy Unknown Unknown Verified 11/02/22 14:19 amoxicillin Allergy Unknown Unknown Verified 11/02/22 14:19 atorvastatin [From Lipitor] Allergy Unknown Unknown Verified 11/02/22 14:19 hydrocodone Allergy Unknown CAN'T Verified 11/02/22 14:19 REMEMBER doxycycline AdvReac Intermediate nausea and Verified 11/02/22 14:19 vomiting Consultations 11/16/22 13:18 ED Decision to Admit Stat Hospital Course (1) Epistaxis: right nare copious bleeding epistaxis likely due to chronic ASA and coumadin therapy this was in the setting of daily aspirin use and coumadin use with INR goal 2.5 to 3.5 s/p rhino rocket placement in the ER no significant bleeding since H/H did drop significantly upon admisison due to the epistaxis but since then stable I spoke with Dr Palomo from ENT on-call - he will see patient 1-2 days post- discharge in ENT clinic rhino rocket to be removed then and evaluation performed keep off of aspirin need to continue the coumadin in light of prosthetic, mechanical valve (2) Acute blood loss anemia: 2nd to #1 provide IV venofer again today - 200mg x 1 b12/folate wnl H/h in am for stability will give 3rd dose tomorrow (3) Permanent atrial fibrillation: cont coumadin cont metoprolol has pacer was due for interrogation in [facility] this week - will get such tomorrow (4) History of mitral valve replacement: coumadin, INR goal 2.5-3.5 INR today 2.8 no changes in coumadin regimen daily INR while here (5) Antiplatelet or antithrombotic long-term use: coumadin for #4 above (6) Hypertension: continue metoprolol continue to hold lisinopril -- BPs controlled without it likely to not need it at d/c due to #2 above (7) Hyperlipidemia: continue statin (8) Sick sinus syndrome: s/p permanent pacemaker placement in the past follows with Dr Meza pacer interrogation to be ordered (9) Cardiomyopathy: EF 40-45% on 2020 echo I cannot find an echo since then On exam appears compensated CXR today - compensated, no obvious pulm edema She has JVD on exam, however -- pulmonary HTN? (had mod pulm HTN in 2020) Will obtain echo and go from there (10) Hypoxia: patient with marked hypoxia during a walk today but did not have symptoms will obtain echo - check PA pressures if pulm HTN is worse the hypoxia could be due to such cxr today wnl await echo will need formal 2-step before discharge but will be tricky if she needs O2 due to recent nosebleed (11) Chronic renal failure (CRF), stage 3b: baseline CrCl low 30s BMP am for stability Plan due to the hypoxia no discharge today await echo updated pt's granddaughter, Jessica - [phone] - this evening by phone she asked if we could consider asking ENT to manage the rhino rocket in house due to concerns about transportation to clinic, etc will inquire with ENT in am [id number] Jyoti updated at bedside 2x's today Home Health Attestation I certify that this patient is under my care and that I, or a physicians it administrative assistant working with me, had a face to-face encounter that meets the home health obrs-tf-plnl encounter requirements with this patient. The encounter with the patient was in whole, or in part, for the following medical condition, which is the primary reason for home health care (list medical condition): weakness, ambulatory dysfunction I certify that, based on my findings, the following services are medically necessary home health services: My clinical findings support the need for the above services because: OT Assess ADL Status and Restore Function w ADLs PT Assessment for Endurance / Balance / Strength PT Eval for Safety and Mobility PT Eval for Safety, Gait Training, Assistive Devices PT Gait and Balance Training, Strengthening and Safety Safety Further, I certify that my clinical findings support that this patient is homebound (i.e. absences from home require considerable and taxing effort and are for medical reasons or roman catholic services or infrequently or of short duration when for other reasons) because: Supportive Aid - Walker Certification for Home Health Services: Based on the above findings, I certify that this patient is confined to the home and needs intermittent half-way care, physical therapy and/or speech therapy or continues to need occupational therapy. The patient is under my care, and I have initiated the establishment of the plan of care. This patient will be followed by a physician who will periodically review the plan of care. Discharge Plan Discharge Items Patient Disposition: Home - Home Health Services Reason For Visit: EPISTAXIS (NOSEBLEED) Discharge Diagnosis: 1. Epistaxis - resolved; packing in place in the right nare 2. Anemia due to nosebleed - 3 runs of IV iron given 3. Chronic cardiomyopathy 4. Mechanical mitral valve 5. Pacemaker 6. Atrial fibrillation 7. Chronic coumadin use Activity: As commented below Activity Comment: light activities next 3 days, then gradually increase as tolerated Lifting: No more than 5 pounds Driving/Machine Use: Can resume in 48 hours Non-emergency contact: Primary Care Provider, Specialist and Stiff Neck Loader Call non-emergency contact if: you have any medication questions and your symptoms worsen Follow-up/Referrals: Stefano Aguayo CRNP [Nurse Practitioner] - 12/01/22 8:20 am Abelardo Mortensen MD [Primary Care Provider] - Argentina Schultz MD, PhD [Pathologist] - 12/14/22 1:00 pm (coumadin clinic visit ) Aj Palomo MD [Physician] - 11/20/22 11:00 am (Please arrive 15 minutes prior to appointment time. ) Diet: Regular Addtl Attending Provider Instructions: Mrs Parrish, You had a severe nosebleed from the right nostril. You lost a moderate amount of blood from the nosebleed. The right nostril was packed with packing called "rhino rocket." Fortunately there has been no further bleeding. Ear/nose/throat with Leonel Conn will see you on Wednesday, 11/20 to remove the packing and examine the nose. You received 3 runs of IV iron due to the blood loss. Your vitamin B12 level was normal but I would like you to take a supplement for a few months (see below). Also during your stay we performed chest x-ray, echocardiogram, and a pacemaker interrogation. I will pass on to the [facility] Cardiology team your test results. On day of discharge we did a formal walking test in the hallway and you do NOT need oxygen at home. Your INR today, 11/19/22, is 2.7. This is well within the goal range for you. Recommendations - 1. Please STOP the following medications - * aspirin * lisinopril 2. Please do NOT take any of the following vkro-qon-lozbteh medications - * motrin / ibuprofen * alleve / naprosyn 3. It is SAFE to take hdwh-zsi-yojsksx tylenol (acetaminophen) for aches/pains. This does not cause any issues with bleeding. 4. If you have troubles with constipation you can take - * miralax 1 serving once a day * if you still need constipation relief you can also take, in addition to miralax, senokot 2 tabs daily as needed 5. For sleep - * you can purchase ftvd-cqj-vmjiqhw MELATONIN - 3mg at bedtime; this is safe and without any major side effects 6. Vitamin B12 supplement - 1000mcg (1mg) once daily for 6 months. 7. Continue your coumadin 3mg daily as previous. 8. Ok to take a bath but do not shower as to avoid getting the rhino rocket and the string wet. 9. Please use your walker at home and when you leave your house. 10. Home physical & occupational therapy will be coming to your home over the next week to help with your conditioning & balance. 11. Again, over the next couple of days, the stools may be dark due to the swallowed blood from the nosebleed. The stools should gradually go back to brown over the next 3-5 days. Follow-up - see separate section Return to [facility] if - * you have any concerns about your nasal packing (rhino rocket) * you have dizziness or lightheadedness * you have a recurrent nosebleed * any other concerns It was our pleasure to care for you! -Dr Romano Pending Studies at Discharge: No Stand-Alone Forms: My [facility] [employer], Smoking Cessation Medications and DC Order Prescriptions: New polyethylene glycol 3350 [Miralax] 17 gram Powder In Packet 17 g PO DAILY Qty: 1 0RF Rx Instructions: can purchase bczz-yxs-swzzeoa melatonin 3 mg Tablet 3 mg PO HS Qty: 1 0RF Rx Instructions: can purchase obcj-efp-aodniwo cyanocobalamin (vitamin B-12) 1,000 mcg capsule 1,000 mcg PO DAILY Qty: 90 1RF Rx Instructions: can purchase zhrb-egr-pdbxqyu Continued calcium carbonate-vit D3-min 600 mg calcium- 400 unit tablet 1 tab PO DAILY multivitamin Tablet 1 tab PO DAILY clindamycin HCl 300 mg capsule 300 mg PO .COMPLEX Qty: 10 0RF Rx Instructions: 300 mg PO 2 pills 1/2 to 1 hour before dental procedure; warfarin 3 mg tablet See Rx Instructions PO UD Qty: 90 1RF Rx Instructions: 3mg daily per [facility] orally use as directed; MUST BE ORDERED THROUGH [facility] metoprolol succinate 50 mg tablet extended release 24 hr 50 mg PO DAILY Qty: 90 3RF omeprazole 40 mg capsule,delayed release(DR/EC) 40 mg PO QAM Qty: 90 3RF rosuvastatin [Crestor] 20 mg tablet 20 mg PO DAILY Qty: 90 3RF clobetasol 0.05 % ointment 1 applic topical .COMPLEX PRN (Reason: Unknown) Rx Instructions: 1 applic topical TO VAGINA NEEDED; Discontinued aspirin [Adult Low Dose Aspirin] 81 mg tablet,delayed release (DR/EC) 81 mg PO QAM lisinopril 20 mg tablet 20 mg PO DAILY Qty: 90 3RF Discharge Orders: Discharge Order (Routine); Ordered 11/19/22 Ordered By: Adiel Romano Admission Data Admit Date/Time: 11/18/22 16:11 Attending Provider: Adiel Romano Admit Provider: Adiel Romano Primary Care Provider: Abelardo Mortensen Other Providers: Adiel Mena Home [facility] Other Interventions: Discharge Summary Assessment (RN) Last Done: 11/19/22 11:54 Coding Diagnoses Epistaxis R04.0 Acute blood loss anemia D62 Permanent atrial fibrillation I48.2 History of mitral valve replacement Z95.2 Antiplatelet or antithrombotic long-term use Z79.02 Hypertension I10 Hypertension type: essential hypertension Hyperlipidemia E78.2 Hyperlipidemia type: mixed hyperlipidemia Sick sinus syndrome I49.5 Cardiomyopathy I42.0 Cardiomyopathy type: dilated Hypoxia R09.02 Chronic renal failure (CRF), stage 3b N18.32
== END 2022-11-19 12:25 | disposition home health service (06) | DRG 813 ==
LOC: ED 08:57 → 3N 08:57 → SUATTDRO 14:34 → 3N 15:58